=== PATIENT | female | born 1930 | race Caucasian/White ===

== ENCOUNTER → 2016-08-26 | Outpatient (CLI) | payer OTHER ==
[~2016-08-26] MED LIST: COEN1CAP17 PO; NRV/5 PO; OMEG10007 PO; PLV75 PO; POTA1080 PO; PSYL55.43 PO; REDCAP2 PO; TNR50 PO; TRIA75TA53 PO
--- NOTE | 2016-08-26 08:46 | Discharge Instructions ---
Discharge Instructions Procedure Procedure Date: Aug 26, 2016. Reason for visit: 6 Month F/U Right Mass. Discharge Discharge Date: Aug 26, 2016. Discharge Diagnosis: post right breast ultrasound guided core biopsy Instructions Activity Recommendations: Additional Limitations (see below) Return to School/Work: no limitations Recommended Home Diet: No Limitations Provider Instructions: ACTIVITY RECOMMENDATIONS: * No lifting, pushing, pulling or exercising the affected side for three days. RETURN TO SCHOOL/WORK: * You may return to work/school after the procedure, but do not perform any strenuous activities for 24 to 48 hours. MEDICATIONS: * Tylenol (two 325 mg) every four to six hours if needed for mild pain (if not allergic to Tylenol). DIET: * Resume previous diet. SPECIAL CARE INSTRUCTIONS: * Keep biopsy site dry for 24 hours. May shower after 24 hours, but do not soak (bathe) incision. * May remove Tegaderm (plastic patch) tomorrow AFTER showering. * Leave the steri-strips on for one week. Allow the steri-strips to fall off by themselves. If not off after one week, you may remove them. You may place a Bandaid crosswise over the strips, if desired. * Apply ice 10 minutes on and 10 minutes off as needed. * Wear a bra at bedtime to sleep more comfortably for 2-3 days. * Your referring physician should have the results after approximately 5 to 7 business days. * Call for unusual bleeding, fever, drainage, etc or if you have any questions call [phone] during normal business hours or after hours call Dr Lozada, . FOLLOW UP VISIT: Follow-up with Referring Physician as scheduled. Allergies Coded Allergies: NSAIDs (Verified Allergy, Unknown, UNKNOWN, 08/02/15) Rosuvastatin (Verified Allergy, Unknown, ITCHING, 08/02/15) Wheat (Verified Allergy, Unknown, puritis, 08/02/15) Tomato (Verified Adverse Reaction, Mild, HEADACHE, SWOLLEN TONGUE, ) Lisinopril (Verified Adverse Reaction, Unknown, SHORTNESS OF BREATH, ) angioedema [place] Recommendations: Call your doctor if: * Temperature above 101 degrees * Pain not relieved by pain medicine ordered * There is increased drainage or redness from any incision * You have any unanswered questions or concerns. Your Doctors Instructions noted above were prepared by provider Mary Lozada. Patient Signature Section: Patient Instructions Signature Page Patricia Kapadia Patient (or Guardian) Signature/Date: I have read and understand the instructions given to me by my caregivers. Caregiver/RN/Doctor Signature/Date: The above-named patient and/or guardian has received patient instructions on this date. + Original Patient Signature Page (only) stays with chart. Please make copy for patient.
--- NOTE | 2016-08-26 13:07 | MAMMOGRAPHY REPORT ---
ULTRASOUND GUIDED BIOPSY RIGHT BREAST: 08/26/2016 CLINICAL HISTORY: Indeterminate cystic appearing mass in the 6:00 retroareolar right breast. Patidavid cohen presents for ultrasound-guided core biopsy. COMPARISON: Comparison is made to exams dated: 08/26/2016 ultrasound, 08/26/2016 mammogram, 01/28/2016 m ammogram, 01/31/2016 mammogram, 01/31/2016 ultrasound, and 02/20/2016 ultrasound - [facility]. PATIENT CONSENT: The procedure, risks and benefits were discussed with the patient and informed writ ten consent was obtained. Specific risks to this procedure include: bleeding, infection, puncture of adjacent structure, nontarget biopsy, sampling error and medication reaction. PROCEDURE DESCRIPTION: A time out was performed and the right breast was agreed as the site of biops y. The skin was prepped and draped in the usual sterile fashion. The cystic appearing mass in the 6: 00 retroareolar right breast was chosen as the target for biopsy. Subcutaneous and intraparenchymal 1% buffered lidocaine without epinephrine was administered as local anesthesia. A skin incision was made. Through the incision, 2 samples were taken with a 12 gauge Celero biopsy device. A metallic m arker was placed at the biopsy site. Hemostasis was achieved after manual compression. The patient t olerated the procedure well and there was no immediate complication. The samples were sent to the p athology department in an appropriately labeled container. Postprocedure right CC tomosynthesis images were obtained. There is a new ribbon-shaped metallic bi opsy marker and a small, 1.5 x 2.5 cm hematoma at the site of the biopsy. Pending benign pathology results, would recommend return to annual screening mammography schedule. Bilateral mammography is due in January 2017. IMPRESSION: ULTRASOUND GUIDED BIOPSY Status post ultrasound-guided core needle biopsy of an indeterminate cystic-appearing mass in the 6: 00 retroareolar right breast, with biopsy marker placed at site. The patient will receive notification of the biopsy results from her referring physician. Mary Lozada M.D. ay/:08/26/2016 09:22:17 Fruit And Vegetable Classer: Leyla Pierre, [facility]
--- NOTE | 2016-08-26 16:04 | MAMMOGRAPHY REPORT ---
UNILATERAL RIGHT DIGITAL DIAGNOSTIC MAMMOGRAM TOMOSYNTHESIS WITH CAD AND TARGETED RIGHT ULTRASOUND: 08/26/2016 CLINICAL HISTORY: 86-year-old woman presents for a short follow-up after a canceled ultrasound-guide d core biopsy in the right breast. TECHNIQUE: Right CC and MLO 2-D digital and tomosynthesis images and a repeat right CC to the digita l image were obtained. Current study was also evaluated with a Computer Aided Detection (CAD) kwame kumari. COMPARISON: Comparison is made to exams dated: 02/20/2016 ultrasound, 01/31/2016 ultrasound, 01/31/2016 mammogram, 01/28/2016 mammogram, 01/24/2015 mammogram, and 01/23/2014 mammogram - [facility]. BREAST COMPOSITION: There are scattered areas of fibroglandular density in the right breast. FINDINGS: The 4 mm nodular asymmetry in the anterior subareolar right breast, best seen on the CC v iew but thought to project in the 6:00 anterior breast is less conspicuous on all of the current luis ges. There is no evidence of a new suspicious mass, architectural distortion or new cluster of susp icious microcalcifications. There are mild vascular calcifications and scattered benign-appearing r ound microcalcifications throughout the right breast. Targeted ultrasound was performed in the 6:00 and retroareolar aspect of the right breast. Today, t here is a small hypoechoic solid versus cystic mass seen in the 6:00 retroareolar breast, similar to that identified on 01/31/2016. Current measurements are 2.3 x 1.9 x 1.3 mm. Given revisualization of this lesion it is indeterminate and further evaluation with ultrasound-guided core biopsy is rec ommended. This was performed during the same appointment and please refer to a separate report for full detail. IMPRESSION: ACR BI-RADS CATEGORY 4A: LOW SUSPICION FOR MALIGNANCY, TARGETED ULTRASOUND ACR BI-RADS CATEGORY 4A: LOW SUSPICION FOR MALIGNANCY 1. The 4 mm focal asymmetry in the anterior 6:00 retroareolar right breast is less conspicuous on t he prior mammograms. However, there is revisualization of a 2 mm rounded hypoechoic mass on ultraso und that is therefore indeterminate. Definitive characterization with ultrasound guided core needle biopsy is recommended. 2. The biopsy was performed during the same appointment and please refer to a separate report for f ull detail. 3. No other significant interval changes identified in the right breast. Pending benign pathology results, the patient can return to annual screening mammography schedule. These results and recommendations were discussed with the patient and her daughter at the time of th e exam. Approximately 10% of breast cancers are not detected with mammography. A negative mammographic repor t should not delay biopsy if a clinically suggestive mass is present. Mary Lozada M.D. ay/:08/26/2016 15:00:34 Decision Support Analyst: Leyla Pierre, [facility] letter sent: Abnormal 4/5 BI-RADS Code: ACR BI-RADS Category 4A: Low Suspicion For Malignancy Ultrasound BI-RADS: ACR BI-RADS Category 4A: Low Suspicion For Malignancy
== END | disposition home or self-care (01) ==
LOC: C.MAMM 07:52
PROVIDERS: ATTEND Family Medicine
DX: N60.11 Diffuse cystic mastopathy of right breast (principal)

== ENCOUNTER → 2016-10-23 | Outpatient (CLI) | payer OTHER ==
[2016-10-23 12:19] LABS: HEMATOCRIT 37.8 % (37-47); MEAN CELL VOLUME 91.5 fL (80-100); MEAN CORPUSCULAR HGB CONC 33.9 g/dl (32-36); MEAN PLATELET VOLUME 8.8 fL (7.4-10.4); PLATELET COUNT 191 K/uL (130-400); RED BLOOD COUNT 4.13 M/uL (4.2-5.4); WHITE BLOOD COUNT 10.25 K/uL (4.8-10.8)
[2016-10-23 13:08] LABS: ALB/GLOB RATIO 0.6 (0.9-2); ALKALINE PHOSPHATASE 60 U/L (45-117); ALT/SGPT 22 U/L (12-78); AST/SGOT 22 U/L (15-37); BLOOD UREA NITROGEN 17 mg/dl (7-18); BUN/CREATININE RATIO 15.3 (10-20); CALCIUM 9.5 mg/dl (8.5-10.1); CARBON DIOXIDE 31 mmol/L (21-32); CHLORIDE 98 mmol/L (98-107); GLUCOSE 91 mg/dl (70-99); MAGNESIUM 2.1 mg/dl (1.8-2.4); POTASSIUM 3.7 mmol/L (3.5-5.1); SODIUM 136 mmol/L (136-145); URIC ACID 7.1 mg/dl (2.6-7.2)
--- NOTE | 2016-10-28 12:09 | CODING QUERY MEDICAL NECESSITY ---
SUPPORTING DIAGNOSIS NEEDED Dr. Cuello, A supporting diagnosis is required for the test/procedure performed on this patient in order for us to be reimbursed by the patient's insurance. Please provide a supporting diagnosis for the following test/procedure listed below next to the test name along with your signature. *If there is no additional diagnosis for this patient that would support the following test/procedure please document that below next to the test/procedure. Test(s)/Procedure(s) that require a supporting diagnosis: * ([id number]) VITAMIN D ASSAY DIAGNOSIS: DATE OF SERVICE: 10/23/16 Provider Signature: Date: Thank you Jeffery Ghotra [facility] Information Management Once completed, please kindly fax back to [phone] For questions please call [phone]
== END | disposition home or self-care (01) ==
LOC: C.LAB 11:29
PROVIDERS: ATTEND Internal Medicine Nephrology
DX: I12.9 Hypertensive chronic kidney disease with stage 1 through stage 4 chronic kidney disease, or unspecified chronic kidney disease (principal); N20.0 Calculus of kidney; N18.9 Chronic kidney disease, unspecified; R80.9 Proteinuria, unspecified; E55.9 Vitamin D deficiency, unspecified

== ENCOUNTER → 2017-02-04 | Outpatient (CLI) | payer OTHER ==
--- NOTE | 2017-02-05 12:10 | MAMMOGRAPHY REPORT ---
BILATERAL DIGITAL SCREENING MAMMOGRAM TOMOSYNTHESIS WITH CAD: 02/04/2017 CLINICAL HISTORY: Routine screening. Patient has no complaints. TECHNIQUE: Breast tomosynthesis in addition to standard 2D mammography was performed. Current study was also evaluated with a Computer Aided Detection (CAD) system. COMPARISON: Comparison is made to exams dated: 08/26/2016 mammogram, 01/31/2016 mammogram, 01/28/2016 ma mmogram, 01/24/2015 mammogram, 01/23/2014 mammogram, and 01/21/2013 mammogram - [facility] BREAST COMPOSITION: There are scattered areas of fibroglandular density in both breasts. FINDINGS: There are moderate vascular calcifications bilaterally. Diffuse bilateral punctate benign- appearing micro-calcifications. A stable ribbon shaped metallic biopsy marker in the anterior right breast. No suspicious mass, architectural distortion or cluster of microcalcifications is seen. IMPRESSION: ACR BI-RADS CATEGORY 1: NEGATIVE There is no mammographic evidence of malignancy. A 1 year screening mammogram is recommended. The pa tient will receive written notification of the results. Approximately 10% of breast cancers are not detected with mammography. A negative mammographic report should not delay biopsy if a clinically suggestive mass is present. Mary Lozada M.D. ay/:02/04/2017 16:06:48 Fluorescent Solution Mixer: Oanh DAMON(Yadi)(Manuel)(BD), [facility] letter sent: Normal 1/2 BI-RADS Code: ACR BI-RADS Category 1: Negative
== END | disposition home or self-care (01) ==
LOC: C.MAMM 09:30
PROVIDERS: ATTEND Family Medicine
DX: Z12.31 Encounter for screening mammogram for malignant neoplasm of breast (principal)

== ENCOUNTER → 2017-04-14 | Outpatient (CLI) | payer OTHER ==
[2017-04-14 18:06] LABS: HEMATOCRIT 40.9 % (37-47); MEAN CELL VOLUME 95.8 fL (80-100); MEAN CORPUSCULAR HEMOGLOBIN 32.1 pg (25-34); MEAN CORPUSCULAR HGB CONC 33.5 g/dl (32-36); MEAN PLATELET VOLUME 8.4 fL (7.4-10.4); PLATELET COUNT 212 K/uL (130-400); RED BLOOD COUNT 4.27 M/uL (4.2-5.4); WHITE BLOOD COUNT 6.82 K/uL (4.8-10.8)
[2017-04-14 18:32] LABS: ALT/SGPT 24 U/L (12-78); AST/SGOT 23 U/L (15-37); BLOOD UREA NITROGEN 14 mg/dl (7-18); BUN/CREATININE RATIO 11.3 (10-20); CALCIUM 9.4 mg/dl (8.5-10.1); CARBON DIOXIDE 30 mmol/L (21-32); CHLORIDE 93 mmol/L (98-107); GLUCOSE 88 mg/dl (70-99); MAGNESIUM 1.7 mg/dl (1.8-2.4); POTASSIUM 3.3 mmol/L (3.5-5.1); SODIUM 131 mmol/L (136-145)
[2017-04-14 18:35] LABS: ALB/GLOB RATIO 0.7 (0.9-2); ALKALINE PHOSPHATASE 56 U/L (45-117)
--- NOTE | 2017-04-21 07:34 | CODING QUERY MEDICAL NECESSITY ---
SUPPORTING DIAGNOSIS NEEDED Dr. Cuello, A supporting diagnosis is required for the test/procedure performed on this patient in order for us to be reimbursed by the patient's insurance. Please provide a supporting diagnosis for the following test/procedure listed below next to the test name along with your signature. *If there is no additional diagnosis for this patient that would support the following test/procedure please document that below next to the test/procedure. Test(s)/Procedure(s) that require a supporting diagnosis: * ([id number]) VITAMIN D ASSAY DIAGNOSIS: DATE OF SERVICE: 04/14/17 Provider Signature: Date: Thank you Jeffery Ghotra [facility] Information Management Once completed, please kindly fax back to [phone] For questions please call [phone]
== END | disposition home or self-care (01) ==
LOC: C.LAB 17:26
PROVIDERS: ATTEND Internal Medicine Nephrology
DX: I12.9 Hypertensive chronic kidney disease with stage 1 through stage 4 chronic kidney disease, or unspecified chronic kidney disease (principal); N20.0 Calculus of kidney; N18.9 Chronic kidney disease, unspecified; R80.9 Proteinuria, unspecified

== ENCOUNTER 2017-10-07 23:56 | Inpatient (IN) | payer OTHER ==
[~2017-10-07] VITALS: Ht 157.5 cm; Wt 71.7 kg
[2017-10-08] VITALS (7 sets, daily range): BP systolic 123–164; BP diastolic 69–73; PULSE 70–82; TEMP 36.6–37.1; O2SAT 92–95; Ht 157.5 cm; Wt 71.7 kg
[2017-10-08] MEDS ORDERED: ONDANSETRON INJ 2 MG/ML 2 ML VIAL IV STA (00:25)
--- NOTE | 2017-10-08 00:33 | EMERGENCY ROOM VISIT NOTE ---
History Report prepared by Valorie: Arpit Xiao Under the Supervision of: Dr. Yajaira Greene D.O. First contact with patient: 00:07 Chief Complaint: VOMITING Stated Complaint: VOMITING Nursing Triage Summary: Pt complains of vomiting since yesterday. Denies any abdominal pain or diarrhea. pt has Urostomy and Colostomy. denies other symptoms. History of Present Illness The patient is an 87 year old female who presents to the Emergency Room with complaints of intermittent vomiting throughout the day. The patient states she was fine over the weekend. She reports she could not eat or drink anything today without vomiting and becoming nauseous. The patient notes she had less stool and urine output from her ostomy bags. She states she currently does not feel sick to her stomach. The patient reports she also has intermittent headaches. She notes she has a history of uterine cancer and has two ostomy bags. The patient states she lives alone. She denies abdominal pain, diarrhea, a history of these symptoms before, chest pain, shortness of breath, dizziness, and lightheadedness. Source of History: patient Onset: intermittent Quality: other (vomiting) Timing: intermittent Modifying Factors (Worsening): eating, drinking Associated Symptoms: + nausea, No chest pain, No SOB, No abdominal pain, No diarrhea Note: Associated symptoms: less ostomy output of stool and urine Denies: dizziness and lightheadedness Review of Systems See HPI for pertinent positives & negatives. A total of 10 systems reviewed and were otherwise negative. Past Medical & Surgical Medical Problems: (1) History of uterine cancer (2) Hyponatremia (3) Urostomy (4) Vomiting Surgical Problems: (1) Colostomy in place (2) History of cholecystectomy Family History Cancer Diabetes mellitus Social History Smoking Status: Never Smoker Alcohol Use: none Drug Use: none Marital Status: Housing Status: lives alone Occupation Status: retired Current/Historical Medications Scheduled Amlodipine Besylate (Amlodipine Besylate), 10 MG PO QAM Amlodipine Besylate (Amlodipine Besylate), 5 MG PO QPM Atenolol (Atenolol), 50 MG PO BID Clopidogrel Bisulfate (Clopidogrel), 75 MG PO DAILY Coenzyme Q10 (Ubidecarenone) (Co Q 10), 100 MG PO DAILY Fish Oil ([place]-3), 1 CAP PO BID Potassium Citrate (Potassium Citrate), 10 MEQ PO TID Psyllium (Metamucil Powder), 1-2 TSP PO DAILY Red Yeast Rice Extract (Red Yeast Rice), 600 MG PO BID Triamterene/Hctz (Maxzide 75MG/50MG), 0.5 TAB PO DAILY Allergies Coded Allergies: NSAIDs (Verified Allergy, Unknown, UNKNOWN, 08/02/15) Rosuvastatin (Verified Allergy, Unknown, ITCHING, 08/02/15) Wheat (Verified Allergy, Unknown, puritis, 08/02/15) Tomato (Verified Adverse Reaction, Mild, HEADACHE, SWOLLEN TONGUE, ) Lisinopril (Verified Adverse Reaction, Unknown, SHORTNESS OF BREATH, ) angioedema Physical Exam Vital Signs Date Time Temp Pulse Resp B/P (MAP) Pulse Ox O2 Delivery O2 Flow Rate FiO2 10/08/17 01:23 96 Nasal Cannula 2.0 10/08/17 01:07 71 19 138/67 88 Room Air 10/08/17 01:06 73 10/08/17 01:06 92 Room Air 10/07/17 23:58 36.6 88 20 169/63 96 Room Air Physical Exam HEENT: Head - normocephalic and atraumatic Pupils are equal, round, and reactive to light. Extraocular eye muscles are intact, and sclera are anicteric. Nose - moist nasal mucosa without discharge. Mouth - dry buccal mucosa. Oropharynx is nonerythematous and there is no tonsillar exudate or edema noted. Neck: Supple; no JVD, nuchal rigidity, cervical lymphadenopathy. Heart: Regular rate and rhythm. There is a normal S1 and S2 with no murmurs, clicks, or gallops appreciated. Lungs: Clear to auscultation bilaterally with no wheezes, rales, or rhonchi. Abdomen: Soft, completely nontender, nondistended, with good bowel sounds. There are no palpable pulsatile masses or hepatosplenomegaly. There is no guarding, rigidity, or rebound noted. Nephrostomy and colostomy in place. Extremities: No evidence of cyanosis, clubbing, or edema. There are easily palpable peripheral pulses. Skin: warm and dry with good turgor and no rashes. Medical Decision & Procedures Laboratory Results 10/08/17 00:27 Red Blood Count 4.30, Mean Corpuscular Volume 86.0, Mean Corpuscular Hemoglobin 31.6, Mean Corpuscular Hemoglobin Concent 36.8, Mean Platelet Volume 8.5, Neutrophils (%) (Auto) 81.5, Lymphocytes (%) (Auto) 10.5, Monocytes (%) (Auto) 7.3, Eosinophils (%) (Auto) 0.4, Basophils (%) (Auto) 0.1, Neutrophils # (Auto) 8.57, Lymphocytes # (Auto) 1.10, Monocytes # (Auto) 0.77, Eosinophils # (Auto) 0.04, Basophils # (Auto) 0.01 Test 10/08/17 00:27 10/08/17 00:41 White Blood Count 10.51 K/uL (4.8-10.8) Red Blood Count 4.30 M/uL (4.2-5.4) Hemoglobin 13.6 g/dL (12.0-16.0) Hematocrit 37.0 % (37-47) Mean Corpuscular Volume 86.0 fL (80-100) Mean Corpuscular Hemoglobin 31.6 pg (25-34) Mean Corpuscular Hemoglobin Concent 36.8 g/dl (32-36) Platelet Count 148 K/uL (130-400) Mean Platelet Volume 8.5 fL (7.4-10.4) Neutrophils (%) (Auto) 81.5 % Lymphocytes (%) (Auto) 10.5 % Monocytes (%) (Auto) 7.3 % Eosinophils (%) (Auto) 0.4 % Basophils (%) (Auto) 0.1 % Neutrophils # (Auto) 8.57 K/uL (1.4-6.5) Lymphocytes # (Auto) 1.10 K/uL (1.2-3.4) Monocytes # (Auto) 0.77 K/uL (0.11-0.59) Eosinophils # (Auto) 0.04 K/uL (0-0.5) Basophils # (Auto) 0.01 K/uL (0-0.2) RDW Standard Deviation 38.7 fL (36.4-46.3) RDW Coefficient of Variation 12.3 % (11.5-14.5) Immature Granulocyte % (Auto) 0.2 % Immature Granulocyte # (Auto) 0.02 K/uL (0.00-0.02) Osmolality 241 mOsm/kg (280-300) Troponin I 0.027 ng/ml (0-0.045) Urine Color YELLOW Urine Appearance TURBID (CLEAR) Urine pH 8.5 (4.5-7.5) Urine Specific [place] 1.011 (1.000-1.030) Urine Protein 2+ (NEG) Urine Glucose (UA) NEG (NEG) Urine Ketones NEG (NEG) Urine Occult Blood 3+ (NEG) Urine Nitrite NEG (NEG) Urine Bilirubin NEG (NEG) Urine Urobilinogen NEG (NEG) Urine Leukocyte Esterase LARGE (NEG) Urine WBC (Auto) >30 /hpf (0-5) Urine RBC (Auto) 10-30 /hpf (0-4) Urine Hyaline Casts (Auto) 0 /lpf (0-5) Urine Epithelial Cells (Auto) >30 /lpf (0-5) Urine Bacteria (Auto) 4+ (NEG) Urine Pathogenic Casts /lpf (0) Urine Yeast (Auto) (NONE PRSENT) Laboratory results per my review. Medications Administered Medications (Trade) Dose Ordered Sig/Vianey Route Start Time Stop Time Status Last Admin Dose Admin Ondansetron HCl (Zofran Inj) 4 mg NOW STAT IV 10/08/17 00:25 10/08/17 00:26 DC 10/08/17 00:36 4 MG Sodium Chloride 1,000 ml @ 250 mls/hr Q4H STAT IV 10/08/17 01:37 10/08/17 03:22 DC 10/08/17 01:56 250 MLS/HR Potassium Chloride (Kcl 10 Meq / Wtr) 10 meq NOW STAT IV 10/08/17 01:37 10/08/17 01:38 DC 10/08/17 01:56 10 MEQ Procedure 0025: Ordered Ondansetron HCl 4mg IV 0137: Ordered Potassium Chloride 10 meq IV, Sodium Chloride 1000 ml @ 250 mls/ hr IV. ECG Per My Interpretation Indication: vomiting Rate (beats per minute): 78 Rhythm: normal sinus Findings: ST depression (Lateral, AVL, and lead I) Comparison ECG Date: 01/21/2016 Change: ST Depression is new. ED Course 0015: The patient was evaluated in room A11B. A complete history and physical examination were performed. Nursing notes and previous electronic medical records were reviewed. IV lock was established and labs were drawn as above. A 12-lead EKG was obtained as described above. 0025: Ordered Ondansetron HCl 4mg IV 0128: Upon reevaluation, I discussed findings and results with her and her family. The patient states her nausea is better. She will receive saline and potassium. She verbalized agreement of the treatment plan. The patient will be evaluated for further management and care. 0137: Ordered Potassium Chloride 10 meq IV, Sodium Chloride 1000 ml @ 250 mls/ hr IV. 0148: I spoke with Dr. Berumen of the [facility]. The patient will be evaluated for further management and care. Medical Decision The patient is an 87 year old female who presents to the ED with intermittent vomiting with nausea. Differential diagnosis includes cardiac ischemia, gastritis, enteritis, SBO. Lab results show: no leukocytosis, stable H&H, sodium of 112, potassium of 2.5, normal renal function, glucose of 130, troponin of 0.027, UA looks infected with 3+ blood, 4+ bacteria, >30 WBC, large leukocyte esterase. This is an 87-year-old female patient presents to the emergency department with a fairly sudden onset of nausea and vomiting. She has no other significant associated symptoms such as diarrhea, fever or abdominal pain. Upon presentation, I was concerned for cardiac ischemia given her age and symptoms of nausea and vomiting. Patient does have some EKG changes. Cardiac enzymes will need to be trended. However, the patient does have significant hypokalemia and hyponatremia. There is electrolyte abnormalities will need to be corrected. This certainly could account for the patient's extreme weakness. I have discussed the case with [facility] and they will evaluate for further management. Medication Reconcilliation Current Medication List: was personally reviewed by me Blood Pressure Screening Patient's blood pressure: Normal blood pressure Blood pressure disposition: Did not require urgent referral Consults Time Called: 013 Consulting Physician: Dr. Berumen of the [facility] Returned Call: [address] Berumen of the [facility]. The patient will be evaluated for further management and care. Impression Primary Impression: NSTEMI (non-ST elevated myocardial infarction) Additional Impressions: Hypokalemia Hyponatremia Scribe Attestation The scribe's documentation has been prepared under my direction and personally reviewed by me in its entirety. I confirm that the note above accurately reflects all work, treatment, procedures, and medical decision making performed by me. Departure Information Dispostion Being Evaluated By Hospitalist Referrals Lucio Carlos M.D. (PCP) Patient Instructions My [facility] Problem Qualifiers
[2017-10-08 00:36] LABS: BASO % 0.1 %; BASO ABS # 0.01 K/uL (0-0.2); EOS % 0.4 %; EOS ABS # 0.04 K/uL (0-0.5); HEMOGLOBIN 13.6 g/dL (12.0-16.0); IG# 0.02 K/uL (0.00-0.02); LYMPH % 10.5 %; MEAN CORPUSCULAR HEMOGLOBIN 31.6 pg (25-34); MEAN CORPUSCULAR HGB CONC 36.8 g/dl (32-36); MEAN PLATELET VOLUME 8.5 fL (7.4-10.4); MONO % 7.3 %; MONO ABS # 0.77 K/uL (0.11-0.59); NEUT % 81.5 %; NEUT ABS # 8.57 K/uL (1.4-6.5); PLATELET COUNT 148 K/uL (130-400); RED CELL DISTRIBUTION WIDTH CV 12.3 % (11.5-14.5); RED CELL DISTRIBUTION WIDTH SD 38.7 fL (36.4-46.3); WHITE BLOOD COUNT 10.51 K/uL (4.8-10.8)
[2017-10-08 01:00] LABS: ALBUMIN 3.2 gm/dl (3.4-5.0); CALCIUM 7.8 mg/dl (8.5-10.1); CREATININE 0.87 mg/dl (0.60-1.20); POTASSIUM 2.5 mmol/L (3.5-5.1)
[2017-10-08] MEDS ORDERED: POTASSIUM CHLORIDE 10 MEQ / 100ML WTR IV STA (01:37)
[2017-10-08] MEDS ORDERED: SODIUM CHLORIDE 0.9% 1000ML 1,000 ML IV STA (01:37)
[2017-10-08] MEDS ORDERED: URC10 PO (02:21)
[2017-10-08] MEDS ORDERED: POTASSIUM CHLORIDE 20 MEQ TABCR PO STA (02:30)
[2017-10-08] MEDS ORDERED: ONDANSETRON INJ 2 MG/ML 2 ML VIAL IV PRN (02:30)
[2017-10-08] MEDS: MAGNESIUM SULFATE 1GM / D5W 1 GM in PREMIXED IN D5W 100 ML IV SCH ×4 (04:37→07:15)
--- NOTE | 2017-10-08 06:58 | History and Physical ---
History & Physical Date & Time of Service: Oct 08, 2017 at 06:51 Chief Complaint: Hyponatremia, Vomiting Primary Care Physician: Lucio Carlos M.D. History of Present Illness Source: patient, family This is an 87 year old Female with history of ostomy bags x 2 who has been having vomiting x 1 day. Patient denies acute abdominal pain associated with the vomiting. She cannot determine whether there has been more ostomy outputs recently. Patient's labs grossly abnormal for: -hyponatremia admission serum sodium 112 -hypomagnesemia admission serum magnesium 1.1 -hypokalemia admission serum potassium 2.5 Patient denies fever or dysuria or lightheadedness or other symptoms besides the vomiting Past Medical/Surgical History Medical Problems: (1) Bowel obstruction (2) Dehydration (3) Electrolyte abnormality (4) Epistaxis (5) History of uterine cancer (6) Hypertension (7) Hyponatremia (8) Mild headache (9) Parastomal hernia (10) Paresthesia (11) Renal insufficiency (12) Urostomy (13) Vomiting Surgical Problems: (1) Colostomy in place (2) History of cholecystectomy Family History Cancer Diabetes mellitus Social History Smoking Status: Never Smoker Drug Use: none Marital Status: Housing status: lives with family Occupational Status: retired Immunizations History of Influenza Vaccine: Yes History of Tetanus Vaccine?: Yes History of Pneumococcal: Yes History of Hepatitis B Vaccine: No Allergies Coded Allergies: NSAIDs (Verified Allergy, Unknown, UNKNOWN, 08/02/15) Rosuvastatin (Verified Allergy, Unknown, ITCHING, 08/02/15) Wheat (Verified Allergy, Unknown, puritis, 08/02/15) Tomato (Verified Adverse Reaction, Mild, HEADACHE, SWOLLEN TONGUE, ) Lisinopril (Verified Adverse Reaction, Unknown, SHORTNESS OF BREATH, ) angioedema Home Medications Scheduled Amlodipine Besylate (Amlodipine Besylate), 10 MG PO QAM Amlodipine Besylate (Amlodipine Besylate), 5 MG PO QPM Atenolol (Atenolol), 50 MG PO BID Clopidogrel Bisulfate (Clopidogrel), 75 MG PO DAILY Coenzyme Q10 (Ubidecarenone) (Co Q 10), 100 MG PO DAILY Fish Oil ([place]-3), 1 CAP PO BID Potassium Citrate (Potassium Citrate), 10 MEQ PO TID Psyllium (Metamucil Powder), 1-2 TSP PO DAILY Red Yeast Rice Extract (Red Yeast Rice), 600 MG PO BID Triamterene/Hctz (Maxzide 75MG/50MG), 0.5 TAB PO DAILY Review of Systems Constitutional: No fever Eyes: No worsening of vision, No eye pain ENT: No hearing loss, No sore throat, No trouble swallowing Respiratory: No cough, No shortness of breath Cardiovascular: No chest pain, No palpitations Abdomen: + nausea, + vomiting, No pain Musculoskeletal: No joint pain Genitourinary - Female: No dysuria Neurologic: No numbness/tingling Endocrine: No fatigue Hematologic / Lymphatic: No abnormal bleeding/bruising Integumentary: No rash, No itch Physical Exam Vital Signs Date Time Temp Pulse Resp B/P (MAP) Pulse Ox O2 Delivery O2 Flow Rate FiO2 10/08/17 04:00 Nasal Cannula 2.0 10/08/17 03:32 36.6 82 20 164/72 10/08/17 03:03 93 17 155/90 97 10/08/17 02:56 93 17 153/82 97 Nasal Cannula 2.0 10/08/17 02:30 Nasal Cannula 2.0 10/08/17 02:23 87 17 143/74 97 Nasal Cannula 2.0 10/08/17 01:23 96 Nasal Cannula 2.0 10/08/17 01:07 71 19 138/67 88 Room Air 10/08/17 01:06 73 10/08/17 01:06 92 Room Air 10/07/17 23:58 36.6 88 20 169/63 96 Room Air General Appearance: no apparent distress Head: normocephalic, atraumatic Eyes: normal inspection, EOMI, sclerae normal ENT: normal ENT inspection, hearing grossly normal, pharynx normal Neck: supple, no JVD, trachea midline Respiratory/Chest: chest non-tender, lungs clear, normal breath sounds, no respiratory distress, no accessory muscle use Cardiovascular: regular rate, rhythm, no edema, no JVD, normal peripheral pulses, + systolic murmur Abdomen/GI: normal bowel sounds, non tender, soft, + pertinent finding ( presence of ostomy bags on right and left abdomen) Back: normal inspection, no CVA tenderness, no muscle spasm Extremities/Musculoskelatal: normal inspection, no calf tenderness, no pedal edema, non-tender Neurologic/Psych: no motor/sensory deficits, alert, normal mood/affect Skin: normal color, warm/dry, no rash Diagnostics Laboratory Results Results Past 24 Hours Test 10/08/17 00:27 10/08/17 00:41 10/08/17 06:28 Range/Units White Blood Count 10.51 4.8-10.8 K/uL Red Blood Count 4.30 4.2-5.4 M/uL Hemoglobin 13.6 12.0-16.0 g/dL Hematocrit 37.0 37-47 % Mean Corpuscular Volume 86.0 80-100 fL Mean Corpuscular Hemoglobin 31.6 25-34 pg Mean Corpuscular Hemoglobin Concent 36.8 32-36 g/dl Platelet Count 148 130-400 K/uL Mean Platelet Volume 8.5 7.4-10.4 fL Neutrophils (%) (Auto) 81.5 % Lymphocytes (%) (Auto) 10.5 % Monocytes (%) (Auto) 7.3 % Eosinophils (%) (Auto) 0.4 % Basophils (%) (Auto) 0.1 % Neutrophils # (Auto) 8.57 1.4-6.5 K/uL Lymphocytes # (Auto) 1.10 1.2-3.4 K/uL Monocytes # (Auto) 0.77 0.11-0.59 K/uL Eosinophils # (Auto) 0.04 0-0.5 K/uL Basophils # (Auto) 0.01 0-0.2 K/uL RDW Standard Deviation 38.7 36.4-46.3 fL RDW Coefficient of Variation 12.3 11.5-14.5 % Immature Granulocyte % (Auto) 0.2 % Immature Granulocyte # (Auto) 0.02 0.00-0.02 K/uL Sodium Level 112 136-145 mmol/L Potassium Level 2.5 3.5-5.1 mmol/L Chloride Level 75 98-107 mmol/L Carbon Dioxide Level 26 21-32 mmol/L Anion Gap 12.0 3-11 mmol/L Blood Urea Nitrogen 14 7-18 mg/dl Creatinine 0.87 0.60-1.20 mg/dl Est Creatinine Clear Calc Drug Dose 40.4 ml/min Estimated GFR () 68.9 Estimated GFR (Non- 59.5 BUN/Creatinine Ratio 15.9 10-20 Random Glucose 130 70-99 mg/dl Osmolality 241 280-300 mOsm/kg Calcium Level 7.8 8.5-10.1 mg/dl Magnesium Level 1.1 1.8-2.4 mg/dl Total Bilirubin 1.2 0.2-1 mg/dl Aspartate Amino Transf (AST/SGOT) 40 15-37 U/L Alanine Aminotransferase (ALT/SGPT) 44 12-78 U/L Alkaline Phosphatase 75 45-117 U/L Troponin I 0.027 0-0.045 ng/ml Total Protein 8.0 6.4-8.2 gm/dl Albumin 3.2 3.4-5.0 gm/dl Globulin 4.8 2.5-4.0 gm/dl Albumin/Globulin Ratio 0.7 0.9-2 Urine Color YELLOW Urine Appearance TURBID CLEAR Urine pH 8.5 4.5-7.5 Urine Specific [place] 1.011 1.000-1.030 Urine Protein 2+ NEG Urine Glucose (UA) NEG NEG Urine Ketones NEG NEG Urine Occult Blood 3+ NEG Urine Nitrite NEG NEG Urine Bilirubin NEG NEG Urine Urobilinogen NEG NEG Urine Leukocyte Esterase LARGE NEG Urine WBC (Auto) >30 0-5 /hpf Urine RBC (Auto) 10-30 0-4 /hpf Urine Hyaline Casts (Auto) 0 0-5 /lpf Urine Epithelial Cells (Auto) >30 0-5 /lpf Urine Bacteria (Auto) 4+ NEG Urine Pathogenic Casts 0 /lpf Urine Yeast (Auto) NONE PRSENT Microbiology Results 10/08/17 Blood Culture, Received Pending 10/08/17 Blood Culture, Received Pending 10/08/17 Urine Culture, Received Pending Impression Assessment and Plan Vomiting -NPO and advance to clear liquids as tolerated -Antiemetics -follow up blood, urine, stool studies -denies abdominal pain -may need abdominal imaging studies if vomiting does not resolve Ostomy sites on right and left abdomen -denies recent antibiotic use -send C.diff study and stool cultures from ostomy output Electrolyte deficiencies likely from vomiting an ostomy output -hyponatremia admission serum sodium 112 - on IV fluids, monitor serum sodium to not over correct beyond 8 meq per 24 hours -hypomagnesemia admission serum magnesium 1.1 - have ordered 4 grams of IV magnesium to be given -hypokalemia admission serum potassium 2.5 - received 10 meq IV potassium in the ED, received 80 meq oral potassium -will need to repeat labs UA with bacteria and large leukesterase -patient denies dysuria, follow up urine cultures The ER notes incorrectly wrote the patient has NSTEMI -initial troponin negative and patient denies chest pain Blood pressure -continue amlodipine -will need to calrify whether patient is on Lopressor 50 mg BID vs Atenolol 50 mg BID Peripheral Vascular disease -continue plavix DVT ppx Full Code family [phone] Advanced Directives Existing Living Will: No Existing Power of Handle Maker: Yes Resuscitation Status VTE Prophylaxis Will order VTE Prophylaxis: Yes
[2017-10-08 07:30] LABS: ALBUMIN 2.8 gm/dl (3.4-5.0); CALCIUM 7.7 mg/dl (8.5-10.1); CREATININE 0.68 mg/dl (0.60-1.20); POTASSIUM 2.9 mmol/L (3.5-5.1); TOTAL PROTEIN 7.1 gm/dl (6.4-8.2)
[2017-10-08] MEDS ORDERED: SODIUM CHLORIDE 0.9% 1000ML 1,000 ML IV SCH (07:45)
[2017-10-08] MEDS: CLOPIDOGREL BISULFATE 75 MG TAB PO SCH (07:54)
[2017-10-08] MEDS ORDERED: CEFTRIAXONE SOD INJ 1 GM in DEXTROSE 5% ADD-VANTAGE 50ML 50 ML IV SCH (12:00)
--- NOTE | 2017-10-08 12:31 | Progress Note ---
Medicine Progress Note Date & Time of Visit: Oct 08, 2017 at 12:22. Subjective 87 yo F with one day h/o vomiting presents with hyponatremia. She is alert and appropriate x 3 but tells me that she feels somewhat confused. She denies any pain, recent illnesses, fevers, chills and denies any nausea at this time. She is requesting food. She denies any abdominal pain. She lives alone and reportedly manages her medications and takes care of herself. Objective Last 8 Hrs Date Time Temp Pulse Resp B/P (MAP) Pulse Ox O2 Delivery O2 Flow Rate FiO2 10/08/17 08:00 92 Room Air 10/08/17 07:33 37.0 74 18 138/72 (94) 93 Nasal Cannula 1.0 Physical Exam: GEN: WNWD, in no acute distress, alert and appropriate HEENT: NC/AT, normal sclerae, MMM CARDIO: reg rate, S1/2 heard without m/g/r LUNGS: CTA bilaterally, no crackles, rales or wheezes, good diaphragmatic excursion ABD: soft, non-tender, non-distended, no rebound or guarding, +BS, two ostomy sites with foul-smelling stool. EXTREMITY: RP and DP palpable 2+ bilat, no LE swelling or edema, extremities are warm and well-perfused NEURO: CN 2-12 grossly intact MUSC: generalized weakness, cannot sit up in bed on her own. SKIN: warm and dry Laboratory Results: 10/08/17 00:27 Red Blood Count 4.30, Mean Corpuscular Volume 86.0, Mean Corpuscular Hemoglobin 31.6, Mean Corpuscular Hemoglobin Concent 36.8, Mean Platelet Volume 8.5, Neutrophils (%) (Auto) 81.5, Lymphocytes (%) (Auto) 10.5, Monocytes (%) (Auto) 7.3, Eosinophils (%) (Auto) 0.4, Basophils (%) (Auto) 0.1, Neutrophils # (Auto) 8.57, Lymphocytes # (Auto) 1.10, Monocytes # (Auto) 0.77, Eosinophils # (Auto) 0.04, Basophils # (Auto) 0.01 Test 10/08/17 00:27 10/08/17 00:41 10/08/17 06:28 10/08/17 08:30 White Blood Count 10.51 K/uL (4.8-10.8) Red Blood Count 4.30 M/uL (4.2-5.4) Hemoglobin 13.6 g/dL (12.0-16.0) Hematocrit 37.0 % (37-47) Mean Corpuscular Volume 86.0 fL (80-100) Mean Corpuscular Hemoglobin 31.6 pg (25-34) Mean Corpuscular Hemoglobin Concent 36.8 g/dl (32-36) Platelet Count 148 K/uL (130-400) Mean Platelet Volume 8.5 fL (7.4-10.4) Neutrophils (%) (Auto) 81.5 % Lymphocytes (%) (Auto) 10.5 % Monocytes (%) (Auto) 7.3 % Eosinophils (%) (Auto) 0.4 % Basophils (%) (Auto) 0.1 % Neutrophils # (Auto) 8.57 K/uL (1.4-6.5) Lymphocytes # (Auto) 1.10 K/uL (1.2-3.4) Monocytes # (Auto) 0.77 K/uL (0.11-0.59) Eosinophils # (Auto) 0.04 K/uL (0-0.5) Basophils # (Auto) 0.01 K/uL (0-0.2) RDW Standard Deviation 38.7 fL (36.4-46.3) RDW Coefficient of Variation 12.3 % (11.5-14.5) Immature Granulocyte % (Auto) 0.2 % Immature Granulocyte # (Auto) 0.02 K/uL (0.00-0.02) Osmolality 241 mOsm/kg (280-300) Troponin I 0.027 ng/ml (0-0.045) Urine Color YELLOW Urine Appearance TURBID (CLEAR) Urine pH 8.5 (4.5-7.5) Urine Specific [place] 1.011 (1.000-1.030) Urine Protein 2+ (NEG) Urine Glucose (UA) NEG (NEG) Urine Ketones NEG (NEG) Urine Occult Blood 3+ (NEG) Urine Nitrite NEG (NEG) Urine Bilirubin NEG (NEG) Urine Urobilinogen NEG (NEG) Urine Leukocyte Esterase LARGE (NEG) Urine WBC (Auto) >30 /hpf (0-5) Urine RBC (Auto) 10-30 /hpf (0-4) Urine Hyaline Casts (Auto) 0 /lpf (0-5) Urine Epithelial Cells (Auto) >30 /lpf (0-5) Urine Bacteria (Auto) 4+ (NEG) Urine Pathogenic Casts /lpf (0) Urine Yeast (Auto) (NONE PRSENT) Est Creatinine Clear Calc Drug Dose 52.9 ml/min Magnesium Level 2.2 mg/dl (1.8-2.4) Total Bilirubin 1.1 mg/dl (0.2-1) Aspartate Amino Transf (AST/SGOT) 37 U/L (15-37) Alanine Aminotransferase (ALT/SGPT) 38 U/L (12-78) Alkaline Phosphatase 67 U/L (45-117) Total Protein 7.1 gm/dl (6.4-8.2) Albumin 2.8 gm/dl (3.4-5.0) Globulin 4.3 gm/dl (2.5-4.0) Albumin/Globulin Ratio 0.7 (0.9-2) Urine Osmolality 306 mOms/kg (500-800) Test 10/08/17 11:55 Date/Time Source Procedure Growth Status 10/08/17 03:03 Blood Blood Culture Pending Received 10/08/17 08:30 Stool Shiga Toxin Test Pending Received 10/08/17 08:30 Stool Stool Culture Pending Received 10/08/17 00:41 Urine , Clean Catch Urine Culture Pending Received Last 24 Hours Test 10/08/17 00:27 10/08/17 00:41 10/08/17 06:28 10/08/17 08:30 White Blood Count 10.51 K/uL Red Blood Count 4.30 M/uL Hemoglobin 13.6 g/dL Hematocrit 37.0 % Mean Corpuscular Volume 86.0 fL Mean Corpuscular Hemoglobin 31.6 pg Mean Corpuscular Hemoglobin Concent 36.8 g/dl Platelet Count 148 K/uL Mean Platelet Volume 8.5 fL Neutrophils (%) (Auto) 81.5 % Lymphocytes (%) (Auto) 10.5 % Monocytes (%) (Auto) 7.3 % Eosinophils (%) (Auto) 0.4 % Basophils (%) (Auto) 0.1 % Neutrophils # (Auto) 8.57 K/uL Lymphocytes # (Auto) 1.10 K/uL Monocytes # (Auto) 0.77 K/uL Eosinophils # (Auto) 0.04 K/uL Basophils # (Auto) 0.01 K/uL RDW Standard Deviation 38.7 fL RDW Coefficient of Variation 12.3 % Immature Granulocyte % (Auto) 0.2 % Immature Granulocyte # (Auto) 0.02 K/uL Sodium Level 112 mmol/L 114 mmol/L Potassium Level 2.5 mmol/L 2.9 mmol/L Chloride Level 75 mmol/L 77 mmol/L Carbon Dioxide Level 26 mmol/L 27 mmol/L Anion Gap 12.0 mmol/L 10.0 mmol/L Blood Urea Nitrogen 14 mg/dl 11 mg/dl Creatinine 0.87 mg/dl 0.68 mg/dl Est Creatinine Clear Calc Drug Dose 40.4 ml/min 52.9 ml/min Estimated GFR () 68.9 90.5 Estimated GFR (Non- 59.5 78.1 BUN/Creatinine Ratio 15.9 16.1 Random Glucose 130 mg/dl 107 mg/dl Osmolality 241 mOsm/kg Calcium Level 7.8 mg/dl 7.7 mg/dl Magnesium Level 1.1 mg/dl 2.2 mg/dl Total Bilirubin 1.2 mg/dl 1.1 mg/dl Aspartate Amino Transf (AST/SGOT) 40 U/L 37 U/L Alanine Aminotransferase (ALT/SGPT) 44 U/L 38 U/L Alkaline Phosphatase 75 U/L 67 U/L Troponin I 0.027 ng/ml Total Protein 8.0 gm/dl 7.1 gm/dl Albumin 3.2 gm/dl 2.8 gm/dl Globulin 4.8 gm/dl 4.3 gm/dl Albumin/Globulin Ratio 0.7 0.7 Urine Color YELLOW Urine Appearance TURBID Urine pH 8.5 Urine Specific [place] 1.011 Urine Protein 2+ Urine Glucose (UA) NEG Urine Ketones NEG Urine Occult Blood 3+ Urine Nitrite NEG Urine Bilirubin NEG Urine Urobilinogen NEG Urine Leukocyte Esterase LARGE Urine WBC (Auto) >30 /hpf Urine RBC (Auto) 10-30 /hpf Urine Hyaline Casts (Auto) 0 /lpf Urine Epithelial Cells (Auto) >30 /lpf Urine Bacteria (Auto) 4+ Urine Pathogenic Casts /lpf Urine Yeast (Auto) Urine Osmolality 306 mOms/kg Test 10/08/17 11:55 Date/Time Source Procedure Growth Status 10/08/17 03:03 Blood Blood Culture Pending Received 10/08/17 02:55 Blood Blood Culture Pending Received 10/08/17 08:30 Stool Shiga Toxin Test Pending Received 10/08/17 08:30 Stool Stool Culture Pending Received 10/08/17 08:30 Stool C.difficile Toxin B Gene (PCR) - Final No C. difficile toxin B gene detected Complete 10/08/17 00:41 Urine , Clean Catch Urine Culture Pending Received Assessment & Plan 87 yo F with one day h/o vomiting presents with hyponatremia. She is alert and appropriate x 3 but tells me that she feels somewhat confused. She denies any pain, recent illnesses, fevers, chills and denies any nausea at this time. She is requesting food. She denies any abdominal pain. She lives alone and reportedly manages her medications and takes care of herself. 1. Hypovolemic Hypotonic Hyponatremia-likely related to recent vomiting, however, patient lives alone and I am wondering if her PO intake is not where it should be with her other electrolyte abnormalities. Additionally, her ostomy output is foul smelling, so infection here is possible, and she appears to have a UTI. 2. [id number] and has resolved. 3. UTI-Rocephin started empirically, urine culture pending. 4. s/p abdominal surgery with bilateral ostomy sites. C-diff negative. Stool studies are pending. 5. Hypomagnesemia-replaced 6. Hypokalemia-replacing. 7. HTN-cont amlopdipine, holding atenolol and maxzide in setting of volume depletion. 8. PVD-cont Plavix DVT ppx-Lovenox Full Code Dispo-telemetry Brielle Moffett DO [facility] Hospitalist Consultants: [facility]phro-Kerim Oncu Current Inpatient Medications: Current Inpatient Medications Medications (Trade) Dose Ordered Sig/Vianey Route Start Time Stop Time Status Last Admin Dose Admin Ondansetron HCl (Zofran Inj) 4 mg Q4H PRN IV 10/08/17 02:30 11/07/17 02:29 Amlodipine Besylate (Norvasc Tab) 5 mg QPM PO 10/08/17 21:00 11/07/17 20:59 Clopidogrel Bisulfate (plAVix TAB) 75 mg DAILY PO 10/08/17 09:00 11/07/17 08:59 10/08/17 07:54 75 MG Sodium Chloride 1,000 ml @ 100 mls/hr Q10H IV 10/08/17 07:45 11/07/17 07:44 10/08/17 10:40 100 MLS/HR Potassium Chloride (Klor-Con Tab) 40 meq Q6H PO 10/08/17 10:30 10/08/17 16:31 Ceftriaxone Sodium 1 gm/ Dextrose 50 ml @ 100 mls/hr Q24H IV 10/08/17 12:00 10/13/17 11:59
[2017-10-08 12:37] LABS: CALCIUM 7.4 mg/dl (8.5-10.1); CREATININE 0.67 mg/dl (0.60-1.20); POTASSIUM 3.3 mmol/L (3.5-5.1)
[2017-10-08] MEDS: POTASSIUM CHLORIDE 20 MEQ TABCR PO SCH ×2 (13:05→17:05)
[2017-10-08] MEDS ORDERED: SODIUM CHLORIDE 3% 500 ML BAG IV STA (13:29)
[2017-10-08] MEDS ORDERED: NON-FORMULARY MEDICATION SCH (15:15)
--- NOTE | 2017-10-08 16:07 | NEPHROLOGY CONSULTATION ---
DATE OF CONSULTATION: 10/08/2017 REFERRING PHYSICIAN: Dr. Moffett. REASON FOR CONSULTATION: Hyponatremia. HISTORY OF PRESENT ILLNESS: This is an 87-year-old female with an ileostomy and a colostomy, who has had nausea and vomiting and had lab work done, showing a sodium level of 112, magnesium level of 1.1 and low potassium. The patient was clinically appeared volume depleted and was given aggressive fluid resuscitation. The patient's sodium level went from 112 to 114. On repeat, sodium level trended back down to 112. The patient was becoming more confused and we decided to do 3% normal saline at 100 mL, given at 75 mL an hour and then we will repeat the sodium levels. The patient's mental status has been waxing and waning. Currently, the patient knows her name, knows that she is in the hospital, knows the year and knows the President. Her appetite has been good and she has been eating well. The patient was diagnosed with a presumed urinary tract infection. The urine had a significant odor to it as well as the stools. Stool cultures are pending. C. diff is negative. PAST MEDICAL HISTORY: Uterine cancer, hypertension, and previous hyponatremia. PAST SURGICAL HISTORY: Colostomy and urostomy as well as a cholecystectomy in the past. FAMILY HISTORY: Significant for cancer and diabetes. SOCIAL HISTORY: No smoking, no alcohol, and no drugs. Lives with family. CURRENT MEDICATIONS: 1. Lovenox 40 mg subQ daily. 2. Norvasc 5 mg a day. 3. Ceftriaxone 1 gram IV daily. 4. Potassium 40 mEq p.o. q. 6 hours. 5. Plavix 75 mg a day. 6. Currently getting 3% normal saline at 100 mL an hour. REVIEW OF SYSTEMS: Difficult to obtain secondary to the patient's waxing and waning mental status, but currently is comfortable with a good appetite, although presented with nausea and vomiting. Does not have any nausea and vomiting at this time. Denies any shortness of breath or chest pain. Denies any headaches, fevers or chills. Appetite is good. All other review of systems otherwise negative. PHYSICAL EXAMINATION: VITAL SIGNS: Temperature 36.7, pulse 76, respiratory rate 18, blood pressure 131/73, and satting 92% on room air. GENERAL: Awake, alert, and oriented x3, although mental status is waxing and waning. HEENT: Mucous membranes are dry. Eyes: No scleral icterus. NECK: Supple. PULMONARY: Clear to auscultation. CARDIAC: 2/6 systolic murmur. ABDOMEN: Bowel sounds positive. Positive colostomy. Positive urostomy. EXTREMITIES: No significant clubbing, cyanosis or edema. NEUROLOGICALLY: Nonfocal, although mental status does wax and wane. DERMATOLOGIC: No rash noted. LABORATORIES: Last labs, sodium level is 112, potassium 3.3 up from 2.5, chloride 76, bicarbonate is 26, BUN is 10, creatinine 0.67, and glucose is 102. Serum osmolality is 241. Calcium 7.4. T-bili is 1.1. Albumin is 2.8. White count is 10, H&H 13 and 37, and platelet count is 148. Urine osmolality of 306. UA with 3+ blood, pH of 8.5, specific gravity of 1.011, 2+ protein, greater than 30 WBCs, 10-30 RBCs, and 4+ bacteria. C. diff negative. Stool cultures, urine cultures, and blood cultures are pending. IMPRESSION AND PLAN: 1. Hyponatremia. The patient's volume status appears to be depleted. Sodium levels should improve with normal saline. However, sodium level did not significantly improve with current normal saline with sodium level dropping from 114 to 112. However, that was also in the setting of the patient getting ceftriaxone, which is mixed in D5W at 50 mL, which may have also worsened the sodium levels. The patient still is eating and drinking well. For now, we will place on a fluid restriction and continue 3% normal saline for a total of 100 mL and repeat the sodium level. Still feel the patient's sodium levels are low secondary to hypovolemia. I would like to restart the normal saline after the 3% normal saline is done. 2. Hypokalemia. Potassium levels are also trending up from 2.5 to 3.3. We have to be careful about overcorrection in this patient and both sodium and potassium should be carefully corrected. We will double check with pharmacy and see if ceftriaxone can be mixed in normal saline and double check that the patient is on a fluid restriction. I appreciate the consultation. NADIR
[2017-10-08 16:39] LABS: CALCIUM 6.9 mg/dl (8.5-10.1); CREATININE 0.71 mg/dl (0.60-1.20); POTASSIUM 3.6 mmol/L (3.5-5.1)
[2017-10-08] MEDS ORDERED: CALCIUM GLUCONATE 10% 1,000 MG in SODIUM CHLORIDE 0.9% 50ML 50 ML IV ONE (16:45)
[2017-10-08] MEDS ORDERED: SODIUM CHLORIDE 3% 500 ML BAG IV ONE (17:00)
[2017-10-08] MEDS ORDERED: NURSING VERBAL MED ORDER ONE (17:15)
[2017-10-08] MEDS ORDERED: SODIUM CHLORIDE 3% INJ 500 ML IV SCH (17:15)
[2017-10-08 20:53] LABS: ALBUMIN 2.5 gm/dl (3.4-5.0); CREATININE 0.71 mg/dl (0.60-1.20); POTASSIUM 3.8 mmol/L (3.5-5.1)
[2017-10-08 20:56] LABS: TOTAL PROTEIN 6.5 gm/dl (6.4-8.2)
[2017-10-08] MEDS: AMLODIPINE BESYLATE 5 MG TAB PO SCH (21:18)
[2017-10-09 04:00] VITALS: BP 130/66; PULSE 74; TEMP 36.7; O2SAT 98
[2017-10-09 04:51] LABS: CALCIUM 7.6 mg/dl (8.5-10.1); CREATININE 0.88 mg/dl (0.60-1.20); PHOSPHORUS 1.6 mg/dl (2.5-4.9)
[2017-10-09] MEDS: SODIUM CHLORIDE 0.9% 1000ML 1,000 ML IV SCH ×2 (06:15→15:34)
--- NOTE | 2017-10-09 06:22 | Nephrology Progress Note ---
Nephrology Progress Note Date of Service: Oct 09, 2017. Subjective 87 yo female with significant hyponatremia which did not improve initially with normal saline. mental status began to wax and wane and decided to give 100cc of 3%normal saline. sodium level only improved by one point up to 113 and given another 200cc of 3%normal saline last night and improved to 118. stopped all fluids since then and sodium is stable at 118. pt appears comfortable and alert today. Objective Date Time Temp Pulse Resp B/P (MAP) Pulse Ox O2 Delivery O2 Flow Rate FiO2 10/09/17 04:00 36.7 74 18 130/66 (87) 98 Room Air 10/09/17 04:00 Room Air 10/09/17 00:00 Room Air 10/08/17 23:45 37.1 70 18 136/69 (91) 95 10/08/17 20:00 36.8 72 20 123/69 (87) 92 Room Air 10/08/17 20:00 Room Air 10/08/17 16:00 Room Air 10/08/17 15:37 37.0 71 18 124/70 (88) 94 Room Air 10/08/17 12:49 Room Air 10/08/17 12:49 36.7 76 18 131/73 (92) 92 Room Air 10/08/17 08:00 92 Room Air 10/08/17 07:33 37.0 74 18 138/72 (94) 93 Nasal Cannula 1.0 Physical Exam: General-aaox3 Eyes-no scleral icterus ENT-mm dry Neck-supple Lungs-cta Heart-rrr Abdomen-+urostomy, +colostomy Extremities-no c/c/e Neuro-nonfocal Current Inpatient Medications Medications (Trade) Dose Ordered Sig/Vianey Route Start Time Stop Time Status Last Admin Dose Admin Ondansetron HCl (Zofran Inj) 4 mg Q4H PRN IV 10/08/17 02:30 11/07/17 02:29 10/08/17 23:52 4 MG Amlodipine Besylate (Norvasc Tab) 5 mg QPM PO 10/08/17 21:00 11/07/17 20:59 10/08/17 21:18 5 MG Clopidogrel Bisulfate (plAVix TAB) 75 mg DAILY PO 10/08/17 09:00 11/07/17 08:59 10/08/17 07:54 75 MG Enoxaparin Sodium (Lovenox Inj) 40 mg QAM SQ 10/09/17 09:00 11/08/17 08:59 Ceftriaxone Sodium 1000 mg/ Sodium Chloride 60 ml @ 120 mls/hr Q24H IV 10/09/17 12:00 10/14/17 11:59 Sodium Chloride 1,000 ml @ 50 mls/hr Q20H IV 10/09/17 06:15 11/08/17 06:14 10/09/17 06:15 50 MLS/HR Last 24 Hours Test 10/08/17 06:28 10/08/17 08:30 10/08/17 11:55 10/08/17 16:01 Sodium Level 114 mmol/L 112 mmol/L 113 mmol/L Potassium Level 2.9 mmol/L 3.3 mmol/L 3.6 mmol/L Chloride Level 77 mmol/L 76 mmol/L 80 mmol/L Carbon Dioxide Level 27 mmol/L 26 mmol/L 26 mmol/L Anion Gap 10.0 mmol/L 9.0 mmol/L 7.0 mmol/L Blood Urea Nitrogen 11 mg/dl 10 mg/dl 9 mg/dl Creatinine 0.68 mg/dl 0.67 mg/dl 0.71 mg/dl Est Creatinine Clear Calc Drug Dose 52.9 ml/min 53.7 ml/min 50.7 ml/min Estimated GFR () 90.5 91.0 88.1 Estimated GFR (Non- 78.1 78.5 76.0 BUN/Creatinine Ratio 16.1 14.4 13.1 Random Glucose 107 mg/dl 102 mg/dl 91 mg/dl Calcium Level 7.7 mg/dl 7.4 mg/dl 6.9 mg/dl Magnesium Level 2.2 mg/dl Total Bilirubin 1.1 mg/dl Aspartate Amino Transf (AST/SGOT) 37 U/L Alanine Aminotransferase (ALT/SGPT) 38 U/L Alkaline Phosphatase 67 U/L Total Protein 7.1 gm/dl Albumin 2.8 gm/dl Globulin 4.3 gm/dl Albumin/Globulin Ratio 0.7 Urine Osmolality 306 mOms/kg Thyroid Stimulating Hormone (TSH) 1.300 uIu/ml Test 10/08/17 19:58 10/09/17 03:53 Sodium Level 118 mmol/L 118 mmol/L Potassium Level 3.8 mmol/L 4.0 mmol/L Chloride Level 84 mmol/L 87 mmol/L Carbon Dioxide Level 27 mmol/L 22 mmol/L Anion Gap 7.0 mmol/L 9.0 mmol/L Blood Urea Nitrogen 9 mg/dl 10 mg/dl Creatinine 0.71 mg/dl 0.88 mg/dl Est Creatinine Clear Calc Drug Dose 50.7 ml/min 40.9 ml/min Estimated GFR () 88.1 68.0 Estimated GFR (Non- 76.0 58.7 BUN/Creatinine Ratio 12.9 11.9 Random Glucose 86 mg/dl 95 mg/dl Calcium Level 7.0 mg/dl 7.6 mg/dl Total Bilirubin 0.6 mg/dl Aspartate Amino Transf (AST/SGOT) 37 U/L Alanine Aminotransferase (ALT/SGPT) 33 U/L Alkaline Phosphatase 61 U/L Total Protein 6.5 gm/dl Albumin 2.5 gm/dl Globulin 4.0 gm/dl Albumin/Globulin Ratio 0.6 Prothrombin Time 10.3 SECONDS Prothromb Time International Ratio 1.0 Phosphorus Level 1.6 mg/dl Magnesium Level 1.8 mg/dl Date/Time Source Procedure Growth Status 10/08/17 08:30 Stool Shiga Toxin Test Pending Received 10/08/17 08:30 Stool Stool Culture Pending Received 10/08/17 08:30 Stool C.difficile Toxin B Gene (PCR) - Final No C. difficile toxin B gene detected Complete Assessment & Plan hyponatremia-feel pt has hyponatremia from volume depletion and restarted normal saline at low rate of 50cc/hr and rechecking bmp about four hours later at 10am. rechecking urine osm as well. perhaps may have element of siadh as well if sodium worsens on the normal saline. hypophosphatemia-will give iv phos supplementation. hypokalemia-k levels have improved nicely, will decrease the k supplementation. pt told me she follows with Dr. Cuello and will transfer care to his service.
[2017-10-09] MEDS ORDERED: SODIUM PHOSPHATE INJ 15 MMOL in SODIUM CHLORIDE 0.9% 250ML 250 ML IV STA (06:26)
[2017-10-09] MEDS ORDERED: SODIUM PHOSPHATE 3 MMOL/1 ML INFUSION IV ONE (06:30)
[2017-10-09 07:40] VITALS: BP 138/71; PULSE 82; TEMP 36.5; O2SAT 93
[2017-10-09 07:41] VITALS: BP 145/60; PULSE 72; TEMP 36.3; O2SAT 97
[2017-10-09] MEDS: ENOXAPARIN 40 MG/0.4 ML SYR SQ SCH (08:30)
[2017-10-09] MEDS: CLOPIDOGREL BISULFATE 75 MG TAB PO SCH (08:30)
[2017-10-09] MEDS ORDERED: POT PHOSPHATE MONOBASIC W/ SOD TAB PO SCH (09:00)
--- NOTE | 2017-10-09 09:46 | Clinical Documentation Query ---
CLINICAL DOCUMENTATION QUERY Dr. STEPHENS, In your clinical opinion is this patient being managed for: ( ) Metabolic encephalopathy in the setting of hyponatremia ( x ) Not Agree ( ) Other explanation of clinical findings (Please Explain) ( ) Unable to determine (Please Define) ( ) Need to Discuss The medical record reflects the following clinical findings, treatment, and risk factors. Clinical Indicators: 87 yo female presenting with vomiting, difficulty with oral intake. Documentation by nephrology indicates pt's mental status has been waxing and waning and was becoming more confused at the time of nephrology initial consult. Treatment: nephrology consult, fluid restriction, 3% NSS IV, monitor PRP's, urine and serum osmo Risk Factors:vomiting, hx hyponatremia, hx uterine cancer Please clarify and document your clinical opinion in the progress notes and discharge summary. Terms such as "probable", "suspected", "likely", "questionable", "possible", or "still to be ruled out" are acceptable. IF IN AGREEMENT, YOU MUST DOCUMENT ABOVE DIAGNOSTIC STATEMENT IN DAILY PROGRESS NOTES AND DISCHARGE SUMMARY. This document is not part of the patient's record. Thank You, Moriah Ballesteros RN [phone]
[2017-10-09 10:33] LABS: CALCIUM 7.5 mg/dl (8.5-10.1); CREATININE 1.06 mg/dl (0.60-1.20); POTASSIUM 3.7 mmol/L (3.5-5.1)
--- NOTE | 2017-10-09 11:11 | Nephrology Consultation ---
Nephrology Consultation Date & Providers Date of Consultation: Oct 09, 2017. Primary Care Provider: Lucio Carlos M.D. Referring Provider: Reason for Consultation Hyponatremia History of Present Illness Ms. Kapadia was seen & examined at the request of Dr. Kapadia. He was initially consulted for management of hyponatremia and later discovered that patient is established w/ [facility]. Medical records in the hospital EMR were reviewed and are summarized as follows: Ms. Kapadia has a history of cervical carcinoma. She required hysterectomy and radiation therapy. This was complicated by rectovaginal fistula formation and bladder perforation. Ms. Kapadia required sigmoid colectomy w/ colostomy formation and creation of a urostomy. Her medical history has been complicated by recurrent CaOx and CaPO4 kidney stones. She has required lithotripsy on several occasions. She has shown good response to aggressive oral hydration, thiazide diuretic and potassium citrate therapy. Litholink studies have shown low supersaturation of stone forming elements. May 2017 Urology evaluation revealed no kidney stones on KUB x-ray. Ms. Kapadia's serum sodium has been 131 - 140 mMol/L while on thiazide diuretics. Yesterday Ms. Kapadia presented to the ED for evaluation of weakness. She related a 24 hour history of recurrent emesis and decreased urostomy and colostomy output. Her presenting serum sodium was 112 mMol/L. This remained unchanged despite one liter 0.9NS. Dr. Kapadia assessed Ms. Kapadia and provided 3% NaCl. Serum sodium has risen from 112 to 118 mMol /L over the last 24 hours. Ms. Kapdaia is now symptomatically improved. At the time of my evaluation she was sitting up in a chair. She is oriented to self, place and month. She reports improved strength and complains of thirst. Past Medical/Surgical History Medical: # Calcium based kidney stones # HTN # Cervical carcinoma s/p hysterectomy and radiation tx Surgical: # Hysterectomy # LLQ Colostomy # RLQ Urostomy Allergies Coded Allergies: NSAIDs (Verified Allergy, Unknown, UNKNOWN, 08/02/15) Rosuvastatin (Verified Allergy, Unknown, ITCHING, 08/02/15) Wheat (Verified Allergy, Unknown, puritis, 08/02/15) Tomato (Verified Adverse Reaction, Mild, HEADACHE, SWOLLEN TONGUE, ) Lisinopril (Verified Adverse Reaction, Unknown, SHORTNESS OF BREATH, ) angioedema Inpatient Medications Current Inpatient Medications Medications (Trade) Dose Ordered Sig/Vianey Route Start Time Stop Time Status Last Admin Dose Admin Ondansetron HCl (Zofran Inj) 4 mg Q4H PRN IV 10/08/17 02:30 11/07/17 02:29 10/08/17 23:52 4 MG Amlodipine Besylate (Norvasc Tab) 5 mg QPM PO 10/08/17 21:00 11/07/17 20:59 10/08/17 21:18 5 MG Clopidogrel Bisulfate (plAVix TAB) 75 mg DAILY PO 10/08/17 09:00 11/07/17 08:59 10/09/17 08:30 75 MG Enoxaparin Sodium (Lovenox Inj) 40 mg QAM SQ 10/09/17 09:00 11/08/17 08:59 10/09/17 08:30 40 MG Ceftriaxone Sodium 1000 mg/ Sodium Chloride 60 ml @ 120 mls/hr Q24H IV 10/09/17 12:00 10/14/17 11:59 Sodium Chloride 1,000 ml @ 50 mls/hr Q20H IV 10/09/17 06:15 11/08/17 06:14 10/09/17 06:15 50 MLS/HR Family History Cancer Diabetes mellitus Negative for CKD / ESRD Social History Smoking Status: Never Smoker Drug Use: none Marital Status: Housing Status: lives with family 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 Review of Systems Constitutional: No fever Respiratory: No cough Cardiovascular: No chest pain Abdomen: + nausea, No pain Genitourinary - Female: No dysuria A complete review of systems was performed. Pertinent positives are noted above. All other systems are negative. Physical Exam Date Time Temp Pulse Resp B/P (MAP) Pulse Ox O2 Delivery O2 Flow Rate FiO2 10/09/17 07:41 36.3 72 16 145/60 (88) 97 Room Air 10/09/17 07:40 36.5 82 16 138/71 (93) 93 Room Air 10/09/17 04:00 36.7 74 18 130/66 (87) 98 Room Air 10/09/17 04:00 Room Air 10/09/17 00:00 Room Air 10/08/17 23:45 37.1 70 18 136/69 (91) 95 10/08/17 20:00 36.8 72 20 123/69 (87) 92 Room Air 10/08/17 20:00 Room Air 10/08/17 16:00 Room Air 10/08/17 15:37 37.0 71 18 124/70 (88) 94 Room Air 10/08/17 12:49 Room Air 10/08/17 12:49 36.7 76 18 131/73 (92) 92 Room Air General Appearance: no apparent distress Head: normocephalic, atraumatic Eyes: PERRL, EOMI ENT: + pertinent finding (dry mucous membranes) Neck: no adenopathy Respiratory/Chest: lungs clear, no respiratory distress Cardiovascular: regular rate, rhythm Abdomen/GI: non tender, soft, + pertinent finding (RLQ urostomy, LLQ colostomy) Extremities/Musculoskelatal: no pedal edema (poor skin turgor) Neurologic/Psych: alert, oriented x 3 Skin: warm/dry Laboratory Results Last 24 Hours Test 10/08/17 11:55 10/08/17 16:01 10/08/17 19:58 10/09/17 03:53 Sodium Level 112 mmol/L 113 mmol/L 118 mmol/L 118 mmol/L Potassium Level 3.3 mmol/L 3.6 mmol/L 3.8 mmol/L 4.0 mmol/L Chloride Level 76 mmol/L 80 mmol/L 84 mmol/L 87 mmol/L Carbon Dioxide Level 26 mmol/L 26 mmol/L 27 mmol/L 22 mmol/L Anion Gap 9.0 mmol/L 7.0 mmol/L 7.0 mmol/L 9.0 mmol/L Blood Urea Nitrogen 10 mg/dl 9 mg/dl 9 mg/dl 10 mg/dl Creatinine 0.67 mg/dl 0.71 mg/dl 0.71 mg/dl 0.88 mg/dl Est Creatinine Clear Calc Drug Dose 53.7 ml/min 50.7 ml/min 50.7 ml/min 40.9 ml/min Estimated GFR () 91.0 88.1 88.1 68.0 Estimated GFR (Non- 78.5 76.0 76.0 58.7 BUN/Creatinine Ratio 14.4 13.1 12.9 11.9 Random Glucose 102 mg/dl 91 mg/dl 86 mg/dl 95 mg/dl Calcium Level 7.4 mg/dl 6.9 mg/dl 7.0 mg/dl 7.6 mg/dl Thyroid Stimulating Hormone (TSH) 1.300 uIu/ml Total Bilirubin 0.6 mg/dl Aspartate Amino Transf (AST/SGOT) 37 U/L Alanine Aminotransferase (ALT/SGPT) 33 U/L Alkaline Phosphatase 61 U/L Total Protein 6.5 gm/dl Albumin 2.5 gm/dl Globulin 4.0 gm/dl Albumin/Globulin Ratio 0.6 Prothrombin Time 10.3 SECONDS Prothromb Time International Ratio 1.0 Phosphorus Level 1.6 mg/dl Magnesium Level 1.8 mg/dl Test 10/09/17 08:25 10/09/17 09:56 Urine Osmolality 281 mOms/kg Sodium Level 118 mmol/L Potassium Level 3.7 mmol/L Chloride Level 86 mmol/L Carbon Dioxide Level 21 mmol/L Anion Gap 11.0 mmol/L Blood Urea Nitrogen 11 mg/dl Creatinine 1.06 mg/dl Est Creatinine Clear Calc Drug Dose 33.9 ml/min Estimated GFR () 54.3 Estimated GFR (Non- 46.8 BUN/Creatinine Ratio 10.0 Random Glucose 98 mg/dl Calcium Level 7.5 mg/dl Impression (1) Hyponatremia (2) Hypokalemia (3) History of uterine cancer (4) History of kidney stones Hypoosmolar hyponatremia. Patient has been on thiazide diuretic therapy for blood pressure and kidney stone management. Expect urine osmolality < 100. Elevated osmolality is c/w patient's volume contracted state. Patient appears euthyroid and has no evidence of CKD or adrenal insufficiency Recommendations -- Neurologically intact this am. Rate of serum sodium correction is appropriate. No acute indication for further 3% NaCl at this time -- Will provide gentle hydration w/ 0.9 NS -- Recheck PRP at 1500 hrs -- Will need to avoid thiazide diuretics -- Agree w/ free water restriction at this time
[2017-10-09 11:36] VITALS: BP 124/68; PULSE 79; TEMP 36.8; O2SAT 96
[2017-10-09] MEDS ORDERED: CEFTRIAXONE SOD INJ 1000 MG in DEXTROSE 5% 50ML IV SCH (12:00)
[2017-10-09 15:20] VITALS: BP 135/73; PULSE 69; TEMP 36.8; O2SAT 96
[2017-10-09 15:30] LABS: CALCIUM 7.6 mg/dl (8.5-10.1); CREATININE 0.89 mg/dl (0.60-1.20); POTASSIUM 3.3 mmol/L (3.5-5.1)
[2017-10-09] MEDS ORDERED: NURSING VERBAL MED ORDER ONE (16:15)
[2017-10-09] MEDS ORDERED: POTASSIUM CHLORIDE 20 MEQ TABCR PO ONE (16:30)
--- NOTE | 2017-10-09 18:36 | Progress Note ---
Medicine Progress Note Date & Time of Visit: Oct 09, 2017 at 18:28. Subjective 87 yo F with one day h/o vomiting presents with hyponatremia. She reports to me today that in preparation for her nephrology appointment next week for kidney stones she was drinking higher amounts of free water at home consistently over the last week prior to arrival. She estimates she was drinking roughly five 16 ounce glasses of water a day. Additionally she was on her diuretic. This led to the nausea and vomiting she experienced prior to arrival, all of which contributed to her low sodium most likely. She is much more alert today and conversant. Daughter is at bedside and reports clinical improvement. The patient is tolerating p.o., denies nausea, denies abdominal pain, denies chest pain or shortness of breath or any other symptom at this time. She continues on fluid restriction. Objective Last 8 Hrs Date Time Temp Pulse Resp B/P (MAP) Pulse Ox O2 Delivery O2 Flow Rate FiO2 10/09/17 15:20 36.8 69 18 135/73 (93) 96 Nasal Cannula 10/09/17 11:36 36.8 79 20 124/68 (86) 96 Room Air Physical Exam: GEN: WNWD, in no acute distress, alert and appropriate HEENT: NC/AT, normal sclerae, MMM CARDIO: reg rate, S1/2 heard without m/g/r LUNGS: CTA bilaterally, no crackles, rales or wheezes, good diaphragmatic excursion ABD: soft, non-tender, non-distended, no rebound or guarding, +BS, two ostomy sites with foul-smelling stool. EXTREMITY: RP and DP palpable 2+ bilat, no LE swelling or edema, extremities are warm and well-perfused NEURO: CN 2-12 grossly intact MUSC: generalized weakness, cannot sit up in bed on her own. SKIN: warm and dry Laboratory Results: 10/08/17 00:27 Red Blood Count 4.30, Mean Corpuscular Volume 86.0, Mean Corpuscular Hemoglobin 31.6, Mean Corpuscular Hemoglobin Concent 36.8, Mean Platelet Volume 8.5, Neutrophils (%) (Auto) 81.5, Lymphocytes (%) (Auto) 10.5, Monocytes (%) (Auto) 7.3, Eosinophils (%) (Auto) 0.4, Basophils (%) (Auto) 0.1, Neutrophils # (Auto) 8.57, Lymphocytes # (Auto) 1.10, Monocytes # (Auto) 0.77, Eosinophils # (Auto) 0.04, Basophils # (Auto) 0.01 10/09/17 14:50 Test 10/08/17 00:27 10/08/17 00:41 10/08/17 16:01 10/08/17 19:58 White Blood Count 10.51 K/uL (4.8-10.8) Red Blood Count 4.30 M/uL (4.2-5.4) Hemoglobin 13.6 g/dL (12.0-16.0) Hematocrit 37.0 % (37-47) Mean Corpuscular Volume 86.0 fL (80-100) Mean Corpuscular Hemoglobin 31.6 pg (25-34) Mean Corpuscular Hemoglobin Concent 36.8 g/dl (32-36) Platelet Count 148 K/uL (130-400) Mean Platelet Volume 8.5 fL (7.4-10.4) Neutrophils (%) (Auto) 81.5 % Lymphocytes (%) (Auto) 10.5 % Monocytes (%) (Auto) 7.3 % Eosinophils (%) (Auto) 0.4 % Basophils (%) (Auto) 0.1 % Neutrophils # (Auto) 8.57 K/uL (1.4-6.5) Lymphocytes # (Auto) 1.10 K/uL (1.2-3.4) Monocytes # (Auto) 0.77 K/uL (0.11-0.59) Eosinophils # (Auto) 0.04 K/uL (0-0.5) Basophils # (Auto) 0.01 K/uL (0-0.2) RDW Standard Deviation 38.7 fL (36.4-46.3) RDW Coefficient of Variation 12.3 % (11.5-14.5) Immature Granulocyte % (Auto) 0.2 % Immature Granulocyte # (Auto) 0.02 K/uL (0.00-0.02) Osmolality 241 mOsm/kg (280-300) Troponin I 0.027 ng/ml (0-0.045) Urine Color YELLOW Urine Appearance TURBID (CLEAR) Urine pH 8.5 (4.5-7.5) Urine Specific [place] 1.011 (1.000-1.030) Urine Protein 2+ (NEG) Urine Glucose (UA) NEG (NEG) Urine Ketones NEG (NEG) Urine Occult Blood 3+ (NEG) Urine Nitrite NEG (NEG) Urine Bilirubin NEG (NEG) Urine Urobilinogen NEG (NEG) Urine Leukocyte Esterase LARGE (NEG) Urine WBC (Auto) >30 /hpf (0-5) Urine RBC (Auto) 10-30 /hpf (0-4) Urine Hyaline Casts (Auto) 0 /lpf (0-5) Urine Epithelial Cells (Auto) >30 /lpf (0-5) Urine Bacteria (Auto) 4+ (NEG) Urine Pathogenic Casts /lpf (0) Urine Yeast (Auto) (NONE PRSENT) Thyroid Stimulating Hormone (TSH) 1.300 uIu/ml (0.300-4.500) Total Bilirubin 0.6 mg/dl (0.2-1) Aspartate Amino Transf (AST/SGOT) 37 U/L (15-37) Alanine Aminotransferase (ALT/SGPT) 33 U/L (12-78) Alkaline Phosphatase 61 U/L (45-117) Total Protein 6.5 gm/dl (6.4-8.2) Albumin 2.5 gm/dl (3.4-5.0) Globulin 4.0 gm/dl (2.5-4.0) Albumin/Globulin Ratio 0.6 (0.9-2) Test 10/09/17 03:53 10/09/17 08:25 10/09/17 14:50 Prothrombin Time 10.3 SECONDS (9.0-12.0) Prothromb Time International Ratio 1.0 (0.9-1.1) Phosphorus Level 1.6 mg/dl (2.5-4.9) Magnesium Level 1.8 mg/dl (1.8-2.4) Urine Osmolality 281 mOms/kg (500-800) Anion Gap 10.0 mmol/L (3-11) Est Creatinine Clear Calc Drug Dose 40.4 ml/min Estimated GFR () 67.1 Estimated GFR (Non- 57.9 BUN/Creatinine Ratio 12.0 (10-20) Calcium Level 7.6 mg/dl (8.5-10.1) Date/Time Source Procedure Growth Status 10/08/17 03:03 Blood Blood Culture - Preliminary NO GROWTH TO DATE. Resulted 10/08/17 08:30 Stool Shiga Toxin Test - Preliminary No E. Coli shiga toxin 1 or shiga tox... Resulted 10/08/17 08:30 Stool Stool Culture - Preliminary NO SALMONELLA ISOLATED TO DATE,... Resulted 10/08/17 00:41 Urine , Clean Catch Urine Culture - Final THREE TYPES OF ORGANISMS PRESENT, ALL... Complete Last 24 Hours Test 10/08/17 19:58 10/09/17 03:53 10/09/17 08:25 10/09/17 09:56 Sodium Level 118 mmol/L 118 mmol/L 118 mmol/L Potassium Level 3.8 mmol/L 4.0 mmol/L 3.7 mmol/L Chloride Level 84 mmol/L 87 mmol/L 86 mmol/L Carbon Dioxide Level 27 mmol/L 22 mmol/L 21 mmol/L Anion Gap 7.0 mmol/L 9.0 mmol/L 11.0 mmol/L Blood Urea Nitrogen 9 mg/dl 10 mg/dl 11 mg/dl Creatinine 0.71 mg/dl 0.88 mg/dl 1.06 mg/dl Est Creatinine Clear Calc Drug Dose 50.7 ml/min 40.9 ml/min 33.9 ml/min Estimated GFR () 88.1 68.0 54.3 Estimated GFR (Non- 76.0 58.7 46.8 BUN/Creatinine Ratio 12.9 11.9 10.0 Random Glucose 86 mg/dl 95 mg/dl 98 mg/dl Calcium Level 7.0 mg/dl 7.6 mg/dl 7.5 mg/dl Total Bilirubin 0.6 mg/dl Aspartate Amino Transf (AST/SGOT) 37 U/L Alanine Aminotransferase (ALT/SGPT) 33 U/L Alkaline Phosphatase 61 U/L Total Protein 6.5 gm/dl Albumin 2.5 gm/dl Globulin 4.0 gm/dl Albumin/Globulin Ratio 0.6 Prothrombin Time 10.3 SECONDS Prothromb Time International Ratio 1.0 Phosphorus Level 1.6 mg/dl Magnesium Level 1.8 mg/dl Urine Osmolality 281 mOms/kg Test 10/09/17 14:50 Sodium Level 122 mmol/L Potassium Level 3.3 mmol/L Chloride Level 90 mmol/L Carbon Dioxide Level 22 mmol/L Anion Gap 10.0 mmol/L Blood Urea Nitrogen 11 mg/dl Creatinine 0.89 mg/dl Est Creatinine Clear Calc Drug Dose 40.4 ml/min Estimated GFR () 67.1 Estimated GFR (Non- 57.9 BUN/Creatinine Ratio 12.0 Random Glucose 100 mg/dl Calcium Level 7.6 mg/dl Assessment & Plan 87 yo F with one day h/o vomiting presents with hyponatremia. She reports to me today that in preparation for her nephrology appointment next week for kidney stones she was drinking higher amounts of free water at home consistently over the last week prior to arrival. She estimates she was drinking roughly five 16 ounce glasses of water a day. Additionally she was on her diuretic. This led to the nausea and vomiting she experienced prior to arrival, all of which contributed to her low sodium most likely. She is much more alert today and conversant. Daughter is at bedside and reports clinical improvement. The patient is tolerating p.o., denies nausea, denies abdominal pain, denies chest pain or shortness of breath or any other symptom at this time. She continues on fluid restriction. 1. Hypovolemic Hypotonic Hyponatremia-likely related to combination of increased free water intake, nausea and vomiting, diuretic use. Diuretic is currently held nephrology following and has her on 100 cc an hour of normal saline with appropriate increase in sodium. Hypertonic saline was given yesterday. Patient is clinically improved. Continue free water restriction per nephrology. 2. UTI-Rocephin started empirically Urine culture returned negative. Stopping Rocephin now. 3. s/p abdominal surgery with bilateral ostomy sites. C-diff negative. Stool studies are pending. 4. Hypophosphatemia-replaced recheck in a.m. 5. HTN-cont amlopdipine, holding atenolol and maxzide in setting of volume depletion. 6. PVD-cont Plavix DVT ppx-Lovenox Full Code [facility] Consultants: Neil Current Inpatient Medications: Current Inpatient Medications Medications (Trade) Dose Ordered Sig/Vianey Route Start Time Stop Time Status Last Admin Dose Admin Ondansetron HCl (Zofran Inj) 4 mg Q4H PRN IV 10/08/17 02:30 11/07/17 02:29 10/08/17 23:52 4 MG Amlodipine Besylate (Norvasc Tab) 5 mg QPM PO 10/08/17 21:00 11/07/17 20:59 10/08/17 21:18 5 MG Clopidogrel Bisulfate (plAVix TAB) 75 mg DAILY PO 10/08/17 09:00 11/07/17 08:59 10/09/17 08:30 75 MG Enoxaparin Sodium (Lovenox Inj) 40 mg QAM SQ 10/09/17 09:00 11/08/17 08:59 10/09/17 08:30 40 MG Ceftriaxone Sodium 1000 mg/ Sodium Chloride 60 ml @ 120 mls/hr Q24H IV 10/09/17 12:00 10/14/17 11:59 10/09/17 13:12 120 MLS/HR Sodium Chloride 1,000 ml @ 100 mls/hr Q10H IV 10/09/17 06:15 11/08/17 06:14 10/09/17 15:34 100 MLS/HR
[2017-10-09 19:49] VITALS: BP 122/72; PULSE 65; TEMP 36.9; O2SAT 97
[2017-10-09] MEDS: AMLODIPINE BESYLATE 5 MG TAB PO SCH (20:32)
[2017-10-10] VITALS (7 sets, daily range): BP systolic 123–137; BP diastolic 72–79; PULSE 55–106; TEMP 36.5–37.5; O2SAT 94–96
[2017-10-10] MEDS: SODIUM CHLORIDE 0.9% 1000ML 1,000 ML IV SCH (01:37)
[2017-10-10 07:32] LABS: CALCIUM 7.5 mg/dl (8.5-10.1); CREATININE 0.65 mg/dl (0.60-1.20); POTASSIUM 3.8 mmol/L (3.5-5.1)
[2017-10-10 07:50] LABS: PHOSPHORUS 1.5 mg/dl (2.5-4.9)
[2017-10-10] MEDS ORDERED: SODIUM PHOSPHATE 3 MMOL/1 ML INFUSION IV STA (08:19)
[2017-10-10] MEDS ORDERED: SODIUM PHOSPHATE INJ 24 MMOL in SODIUM CHLORIDE 0.9% 500ML 500 ML IV ONE (08:30)
[2017-10-10] MEDS: POT PHOSPHATE MONOBASIC W/ SOD TAB PO SCH ×4 (08:59→20:58)
[2017-10-10] MEDS: CLOPIDOGREL BISULFATE 75 MG TAB PO SCH (08:59)
[2017-10-10] MEDS: ENOXAPARIN 40 MG/0.4 ML SYR SQ SCH (08:59)
--- NOTE | 2017-10-10 12:51 | Nephrology Progress Note ---
Nephrology Progress Note Date of Service Oct 10, 2017. Chief Complaint Follow-up for hyponatremia. Yuko Gomez was seen and examined in her room this morning. She has been overall feeling well. Blood pressure stable. Serum sodium improved rapidly to 133. Electrolyte acceptable. Review of Systems A complete review of systems was performed. Pertinent positives are noted above. All other systems are negative. Vital Signs Last 8 Hrs Date Time Temp Pulse Resp B/P (MAP) Pulse Ox O2 Delivery O2 Flow Rate FiO2 10/10/17 12:04 36.5 66 18 133/75 (94) 95 Room Air 10/10/17 12:01 36.7 55 19 95 1.0 10/10/17 08:05 Room Air 10/10/17 07:55 36.7 55 19 123/72 (89) 95 Room Air Last Recorded Weight Weight (Kilograms): 71.700 Physical Exam GENERAL: Elderly female, AAA x 3, pleasant, healthy-appearing, not in any distress. NECK: Supple, no JVD. RESPIRATORY: Normal breathing efforts, no accessory muscle use, clear to auscultation bilaterally, no wheezes or rales. CARDIOVASCULAR: S1, S2 normal, rate rhythm regular. EXTREMITY: No lower extremity edema NEURO: speech fluent. 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 Laboratory Results Past 24 Hours 10/09/17 14:50 10/10/17 06:31 Test 10/09/17 14:50 10/10/17 06:31 Anion Gap 10.0 mmol/L (3-11) 8.0 mmol/L (3-11) Est Creatinine Clear Calc Drug Dose 40.4 ml/min 55.5 ml/min Estimated GFR () 67.1 91.9 Estimated GFR (Non- 57.9 79.3 BUN/Creatinine Ratio 12.0 (10-20) 13.9 (10-20) Calcium Level 7.6 mg/dl (8.5-10.1) 7.5 mg/dl (8.5-10.1) Phosphorus Level 1.5 mg/dl (2.5-4.9) Magnesium Level 2.1 mg/dl (1.8-2.4) Allergies Coded Allergies: NSAIDs (Verified Allergy, Unknown, UNKNOWN, 08/02/15) Rosuvastatin (Verified Allergy, Unknown, ITCHING, 08/02/15) Wheat (Verified Allergy, Unknown, puritis, 08/02/15) Tomato (Verified Adverse Reaction, Mild, HEADACHE, SWOLLEN TONGUE, ) Lisinopril (Verified Adverse Reaction, Unknown, SHORTNESS OF BREATH, ) angioedema Medications Current Inpatient Medications Medications (Trade) Dose Ordered Sig/Vianey Route Start Time Stop Time Status Last Admin Dose Admin Ondansetron HCl (Zofran Inj) 4 mg Q4H PRN IV 10/08/17 02:30 11/07/17 02:29 10/08/17 23:52 4 MG Amlodipine Besylate (Norvasc Tab) 5 mg QPM PO 10/08/17 21:00 11/07/17 20:59 10/09/17 20:32 5 MG Clopidogrel Bisulfate (plAVix TAB) 75 mg DAILY PO 10/08/17 09:00 11/07/17 08:59 10/10/17 08:59 75 MG Enoxaparin Sodium (Lovenox Inj) 40 mg QAM SQ 10/09/17 09:00 11/08/17 08:59 10/10/17 08:59 40 MG Potassium/ Phosphorus/Sodium (Phospha 250 Neutral 155-852-130 Mg) 1 tab QID PO 10/10/17 09:00 11/09/17 08:59 10/10/17 12:17 1 TAB Impression (1) Hyponatremia (2) Hypokalemia (3) History of uterine cancer (4) History of kidney stones Hypoosmolar hyponatremia. Patient has been on thiazide diuretic therapy for blood pressure and kidney stone management. Expect urine osmolality < 100. Elevated osmolality is c/w patient's volume contracted state. Patient appears euthyroid and has no evidence of CKD or adrenal insufficiency Recommendations -- discontinue IV fluid, repeat serum sodium in 3-4 hours, if serum sodium above 135 will start on D5 water -- Will need to avoid thiazide diuretics -- Agree w/ free water restriction at this time --if patient needs diuretics, loop diuretics would be a better choice. Will follow
--- NOTE | 2017-10-10 18:14 | Progress Note ---
Internal Med Progress Note Date of Service: Oct 10, 2017. Provider Documentation: SUBJECTIVE: resting comfortably no nausea or vomiting tolerating diet afebrile no chest pain or sob wants to go home but ok to stay until Thursday if needed. OBJECTIVE: Vital Signs-as noted below Exam: General-alert and oriented. Not in distress ENT-Normal hearing Neck-no neck masses Lungs-cta b/l no wheezing or crackles Heart-S 1 and s2 heard regular no murmurs Abdomen-soft bowel sounds present non tender no distension Extremities-no edema no erythema Neuro-alert and awake moves extremities Lab data as noted below. ASSESSMENT & PLAN: 87 yo F with one day h/o vomiting presents with hyponatremia..On diuretic for kidney stones 1. Hypovolemic Hyposmolar Hyponatremia-Most likely secondary nausea and vomiting, diuretic use. Diuretic is currently held . recived iv fluifs. Na improved to 133 today. f;uids stopped and recheck of Sodium 135. D/W nephrology. Plan to check again today evening and if still climbing up to start on D5W To avoid over correction. 2. UTI- was on Rocephin which is stopped now as cx negative. 3. s/p abdominal surgery with bilateral ostomy sites. C-diff negative. 4. Hypophosphatemia-replacing. 5. HTN-cont amlodipine, holding atenolol and maxzide in setting of volume depletion.Will monitor. 6. PVD-cont Plavix DVT PROPHYLAXIS Lovenox DISPOSITION transferred to medical floor Vital Signs: Date Time Temp Pulse Resp B/P (MAP) Pulse Ox O2 Delivery O2 Flow Rate FiO2 10/10/17 16:10 36.5 68 16 137/72 (93) 96 Room Air 10/10/17 15:40 Room Air 10/10/17 12:04 36.5 66 18 133/75 (94) 95 Room Air 10/10/17 12:01 36.7 55 19 95 1.0 10/10/17 12:00 Room Air 10/10/17 08:05 Room Air 10/10/17 07:55 36.7 55 19 123/72 (89) 95 Room Air 10/10/17 04:00 Room Air 10/10/17 03:28 36.6 70 18 125/76 (92) 96 Room Air 10/10/17 00:26 37.5 106 18 135/79 (97) 94 Room Air 10/10/17 00:01 Room Air 10/09/17 20:00 Room Air 10/09/17 19:49 36.9 65 19 122/72 (89) 97 Room Air Lab Results: Results Past 24 Hours Test 10/10/17 06:31 10/10/17 13:22 10/10/17 17:48 Range/Units Sodium Level 133 135 136-145 mmol/L Potassium Level 3.8 3.5-5.1 mmol/L Chloride Level 104 98-107 mmol/L Carbon Dioxide Level 21 21-32 mmol/L Anion Gap 8.0 3-11 mmol/L Blood Urea Nitrogen 9 7-18 mg/dl Creatinine 0.65 0.60-1.20 mg/dl Est Creatinine Clear Calc Drug Dose 55.5 ml/min Estimated GFR () 91.9 Estimated GFR (Non- 79.3 BUN/Creatinine Ratio 13.9 10-20 Random Glucose 78 70-99 mg/dl Calcium Level 7.5 8.5-10.1 mg/dl Phosphorus Level 1.5 2.5-4.9 mg/dl Magnesium Level 2.1 1.8-2.4 mg/dl
[2017-10-10] MEDS: AMLODIPINE BESYLATE 5 MG TAB PO SCH (20:58)
[2017-10-11 06:29] LABS: CALCIUM 7.7 mg/dl (8.5-10.1); CREATININE 0.75 mg/dl (0.60-1.20); POTASSIUM 3.5 mmol/L (3.5-5.1)
[2017-10-11] MEDS: CLOPIDOGREL BISULFATE 75 MG TAB PO SCH (07:46)
[2017-10-11] MEDS: POT PHOSPHATE MONOBASIC W/ SOD TAB PO SCH ×2 (07:46→11:59)
[2017-10-11] MEDS: ENOXAPARIN 40 MG/0.4 ML SYR SQ SCH (07:48)
[2017-10-11 08:00] VITALS: BP 157/84; PULSE 64; TEMP 36.4; O2SAT 96
[2017-10-11 08:09] LABS: PHOSPHORUS 2.5 mg/dl (2.5-4.9)
--- NOTE | 2017-10-11 12:44 | Nephrology Progress Note ---
Nephrology Progress Note Date of Service Oct 11, 2017. Chief Complaint Follow-up for hyponatremia. Yuko Gomez was seen and examined in her room this morning. She has been overall feeling well. Blood pressure stable. Serum sodium improved and stable around 134-135. Electrolyte acceptable. Review of Systems A complete review of systems was performed. Pertinent positives are noted above. All other systems are negative. Vital Signs Last 8 Hrs Date Time Temp Pulse Resp B/P (MAP) Pulse Ox O2 Delivery O2 Flow Rate FiO2 10/11/17 08:00 36.4 64 17 157/84 (108) 96 Room Air 10/11/17 08:00 Room Air Last Recorded Weight Weight (Kilograms): 71.700 Physical Exam GENERAL: Elderly female, AAA x 3, pleasant, healthy-appearing, not in any distress. NECK: Supple, no JVD. RESPIRATORY: Normal breathing efforts, no accessory muscle use, clear to auscultation bilaterally, no wheezes or rales. CARDIOVASCULAR: S1, S2 normal, rate rhythm regular. EXTREMITY: No lower extremity edema NEURO: speech fluent. 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 Laboratory Results Past 24 Hours 10/10/17 13:22 10/10/17 17:48 10/11/17 05:33 Test 10/11/17 05:33 Anion Gap 8.0 mmol/L (3-11) Est Creatinine Clear Calc Drug Dose 48.1 ml/min Estimated GFR () 82.5 Estimated GFR (Non- 71.2 BUN/Creatinine Ratio 15.9 (10-20) Calcium Level 7.7 mg/dl (8.5-10.1) Phosphorus Level 2.5 mg/dl (2.5-4.9) Magnesium Level 1.7 mg/dl (1.8-2.4) Chemistry Specimen Hemolysis Allergies Coded Allergies: NSAIDs (Verified Allergy, Unknown, UNKNOWN, 08/02/15) Rosuvastatin (Verified Allergy, Unknown, ITCHING, 08/02/15) Wheat (Verified Allergy, Unknown, puritis, 08/02/15) Tomato (Verified Adverse Reaction, Mild, HEADACHE, SWOLLEN TONGUE, ) Lisinopril (Verified Adverse Reaction, Unknown, SHORTNESS OF BREATH, ) angioedema Medications Current Inpatient Medications Medications (Trade) Dose Ordered Sig/Vianey Route Start Time Stop Time Status Last Admin Dose Admin Ondansetron HCl (Zofran Inj) 4 mg Q4H PRN IV 10/08/17 02:30 11/07/17 02:29 10/08/17 23:52 4 MG Amlodipine Besylate (Norvasc Tab) 5 mg QPM PO 10/08/17 21:00 11/07/17 20:59 10/10/17 20:58 5 MG Clopidogrel Bisulfate (plAVix TAB) 75 mg DAILY PO 10/08/17 09:00 11/07/17 08:59 10/11/17 07:46 75 MG Enoxaparin Sodium (Lovenox Inj) 40 mg QAM SQ 10/09/17 09:00 11/08/17 08:59 10/10/17 08:59 40 MG Potassium/ Phosphorus/Sodium (Phospha 250 Neutral 155-852-130 Mg) 1 tab QID PO 10/10/17 09:00 11/09/17 08:59 10/11/17 11:59 1 TAB Sodium Chloride (Sodium Chloride Tab) 1 gm BID PO 10/11/17 21:00 11/10/17 20:59 Magnesium Oxide (Mag-Ox Tab) 400 mg BID PO 10/11/17 21:00 11/10/17 20:59 Impression (1) Hyponatremia (2) Hypokalemia (3) History of uterine cancer (4) History of kidney stones Hypoosmolar hyponatremia. Patient has been on thiazide diuretic therapy for blood pressure and kidney stone management. Expect urine osmolality < 100. Elevated osmolality is c/w patient's volume contracted state. Patient appears euthyroid and has no evidence of CKD or adrenal insufficiency Recommendations -- start on sodium chloride tablet 1 tab twice a day -- Will need to avoid thiazide diuretics -- Agree w/ free water restriction at this time --if patient needs diuretics, loop diuretics would be a better choice. Okay to be discharged, please schedule for follow-up appointment with in 1-2 weeks, and outpatient lab done in 2-3 days
[2017-10-11] MEDS ORDERED: MGNO400 PO ×2 (12:57→13:16)
--- NOTE | 2017-10-11 13:01 | Discharge Instructions ---
Discharge Instructions Date of Service Oct 11, 2017. Admission Reason for Admission: Hyponatremia, Vomiting Discharge Discharge Diagnosis / Problem: Hyponatremia, nausea/vomiting Discharge Goals Goal(s): Decrease discomfort, Improve function Activity Recommendations Activity Limitations: resume your previous activity . Instructions / Follow-Up Instructions / Follow-Up FOLLOWUP WITH FAMILY DOCTOR ON September AT 10AM. FOLLOWUP WITH NEPHROLOGY IN 1-2 WEEKS. FOLLOWUP WITH SURGERY SOON POSSIBLE FOR COLOSTOMY ON AND OFF BLEEDING.( [address], [place] [address] ) LAB: BMP WITH MG LEVELS IN 3-4 DAYS AND FOLLOW RESULTS WITH FAMILY DOCTOR AND NEPHROLOGY. STOPPING DIURETIC MAXZIDE AND IF DIURETIC NEEDED LATER ON NEPHROLOGY RECOMMENDS LOOP DIURETIC( LASIX) STARTING ON SALT TABLET 1GM TWICE DAILY. NEEDS TO FOLLOWUP LABS ABOVE WITH FAMILY DOCTOR AND NEPHROLOGY Current Hospital Diet Patient's current hospital diet: AHA Diet (Heart Healthy) Discharge Diet Recommended Diet: AHA Diet (Heart Healthy) Fluid Restriction: 1800 ml (7 cups) Pending Studies Studies pending at discharge: no Medical Emergencies . Who to Call and When: Medical Emergencies: If at any time you feel your situation is an emergency, please call 911 immediately. . Non-Emergent Contact Non-Emergency issues call your: Primary Care Provider . . "Provider Documentation" section prepared by Jeronimo Tyson. .
[2017-10-11] MEDS ORDERED: NRV/5 PO (13:15)
[2017-10-11] MEDS ORDERED: SDMC1 PO (13:16)
[2017-10-11 13:49] VITALS: BP 157/84; PULSE 64; TEMP 36.4; O2SAT 96
--- NOTE | 2017-10-11 15:40 | Progress Note ---
Internal Med Progress Note Date of Service: Oct 11, 2017. Provider Documentation: SUBJECTIVE: resting comfortably nausea and vomiting resolved tolerating diet fine afebrile no sob wants to be discharged colostomy site bled but stopped. says its happening on and off for some time and will follow with surgery as out patient OBJECTIVE: Vital Signs-as noted below Exam: General-alert and oriented. Not in distress ENT-Normal hearing Neck-no neck masses Lungs-cta b/l no wheezing or crackles Heart-S 1 and s2 heard regular no murmurs Abdomen-soft bowel sounds present non tender no distension colostomy site fine Extremities-no edema no erythema Neuro-alert and awake moves extremities Lab data as noted below. ASSESSMENT & PLAN: 87 yo F with one day h/o vomiting presents with hyponatremia..On diuretic for kidney stones 1. Hypovolemic Hyposmolar Hyponatremia-Most likely secondary nausea and vomiting, diuretic use. Diuretic is currently held . received iv fluifs. Na improved to 133 today. fluids stopped and recheck of Sodium 135. D/W nephrology. Na 134 ttoday. started on soidum tablets by nephrology. fluid restriction(1800ml/day at discharge). f/u labs closely with pcp and nephrology 2. UTI- was on Rocephin which is stopped now as cx negative. 3. s/p abdominal surgery with bilateral ostomy sites. C-diff negative. 4. Hypophosphatemia-replacing. 5. HTN-cont amlodipine, holding atenolol and maxzide in setting of volume depletion. stopped Maxzide at discharge. f/u with pcp. nephrology recommends loop diuretic if needed 6. Kidney stones. continuing potassium citrate. f/u labs with pcp 6. PVD-cont Plavix discharged home Vital Signs: Date Time Temp Pulse Resp B/P (MAP) Pulse Ox O2 Delivery O2 Flow Rate FiO2 10/11/17 13:49 36.4 64 17 96 Room Air 10/11/17 08:00 36.4 64 17 157/84 (108) 96 Room Air 10/11/17 08:00 Room Air 10/11/17 00:00 Room Air 10/10/17 23:07 37.2 77 20 129/73 (91) 96 Room Air 10/10/17 16:10 36.5 68 16 137/72 (93) 96 Room Air 10/10/17 15:40 Room Air Lab Results: Results Past 24 Hours Test 10/10/17 17:48 10/11/17 05:33 10/11/17 13:40 Range/Units Sodium Level 135 134 136-145 mmol/L Potassium Level 3.5 3.5-5.1 mmol/L Chloride Level 101 98-107 mmol/L Carbon Dioxide Level 25 21-32 mmol/L Anion Gap 8.0 3-11 mmol/L Blood Urea Nitrogen 12 7-18 mg/dl Creatinine 0.75 0.60-1.20 mg/dl Est Creatinine Clear Calc Drug Dose 48.1 ml/min Estimated GFR () 82.5 Estimated GFR (Non- 71.2 BUN/Creatinine Ratio 15.9 10-20 Random Glucose 76 70-99 mg/dl Calcium Level 7.7 8.5-10.1 mg/dl Phosphorus Level 2.5 2.5-4.9 mg/dl Magnesium Level 1.7 1.8-2.4 mg/dl Chemistry Specimen Hemolysis Urine Osmolality 328 500-800 mOms/kg
--- NOTE | 2017-10-11 15:58 | Discharge Summary ---
Discharge Summary Date of Service Oct 11, 2017. Discharge Summary Admission Date: Oct 08, 2017 at 02:19 Discharge Date: Oct 11, 2017 Discharge Disposition: Home Principal Diagnosis: HYPONATREMIA N/V Secondary Diagnoses/Problems: (1) Bowel obstruction (2) Dehydration (3) Electrolyte abnormality (4) Epistaxis (5) History of uterine cancer (6) Hypertension (7) Hyponatremia (8) Mild headache (9) Parastomal hernia (10) Paresthesia (11) Renal insufficiency (12) Urostomy (13) Vomiting Consultations: Nephro-Donnelan Pending Studies/Follow-Up: LAB: BMP IN 3-4 DAYS Medication Reconciliation New Medications: Sodium Chloride (Sodium Chloride) 1 Gm Tab 1 GM PO BID for 30 Days, #60 TABS 2 Refills Magnesium Oxide (Magnesium-Oxide) 400 Mg Tab 400 MG PO BID for 7 Days, #14 TAB Continued Medications: Amlodipine Besylate (Amlodipine Besylate) 5 Mg Tab 5 MG PO BID, #30 Atenolol (Atenolol) 50 Mg Tab 50 MG PO BID Clopidogrel Bisulfate (Clopidogrel) 75 Mg Tab 75 MG PO DAILY Coenzyme Q10 (Ubidecarenone) (Co Q 10) 100 Mg Cap 100 MG PO DAILY Fish Oil ([place]-3) 1 Ea Cap 1 CAP PO BID Potassium Citrate (Potassium Citrate) 10 Meq Tab 10 MEQ PO TID Psyllium (Metamucil Powder) Powd 1-2 TSP PO DAILY MIX 1-2 TEASPOONS IN WATER DAILY IN AM Red Yeast Rice Extract (Red Yeast Rice) 600 Mg Cap 600 MG PO BID Discontinued Medications: Triamterene/Hctz (Maxzide 75MG/50MG) Tab 0.5 TAB PO DAILY, TAB Admission Information HPI (per Admitting provider): This is an 87 year old Female with history of ostomy bags x 2 who has been having vomiting x 1 day. Patient denies acute abdominal pain associated with the vomiting. She cannot determine whether there has been more ostomy outputs recently. Patient's labs grossly abnormal for: -hyponatremia admission serum sodium 112 -hypomagnesemia admission serum magnesium 1.1 -hypokalemia admission serum potassium 2.5 Patient denies fever or dysuria or lightheadedness or other symptoms besides the vomiting Physical Exam (per Admitting): General Appearance: no apparent distress Head: normocephalic, atraumatic Eyes: normal inspection, EOMI, sclerae normal ENT: normal ENT inspection, hearing grossly normal, pharynx normal Neck: supple, no JVD, trachea midline Respiratory/Chest: chest non-tender, lungs clear, normal breath sounds, no respiratory distress, no accessory muscle use Cardiovascular: regular rate, rhythm, no edema, no JVD, normal peripheral pulses, + systolic murmur Abdomen/GI: normal bowel sounds, non tender, soft, + pertinent finding ( presence of ostomy bags on right and left abdomen) Back: normal inspection, no CVA tenderness, no muscle spasm Extremities/Musculoskelatal: normal inspection, no calf tenderness, no pedal edema, non-tender Neurologic/Psych: no motor/sensory deficits, alert, normal mood/affect Skin: normal color, warm/dry, no rash Hospital Course 87 yo F with one day h/o vomiting presents with hyponatremia..On diuretic for kidney stones 1. Hypovolemic Hyposmolar Hyponatremia-Most likely secondary nausea and vomiting, diuretic use. Diuretic is currently held . received iv fluifs. Na improved to 133 today. fluids stopped and recheck of Sodium 135. D/W nephrology. Na 134 ttoday. started on soidum tablets by nephrology. fluid restriction(1800ml/day at discharge). f/u labs closely with pcp and nephrology 2. UTI- was on Rocephin which is stopped now as cx negative. 3. s/p abdominal surgery with bilateral ostomy sites. C-diff negative. 4. Hypophosphatemia-replacing. 5. HTN-cont amlodipine, holding atenolol and maxzide in setting of volume depletion. stopped Maxzide at discharge. f/u with pcp. nephrology recommends loop diuretic if needed 6. Kidney stones. continuing potassium citrate. f/u labs with pcp 6. PVD-cont Plavix discharged home Total time spent on discharge = 35MINUTES This includes examination of the patient, discharge planning, medication reconciliation, and communication with other providers. Discharge Instructions Discharge Instructions Date of Service Oct 11, 2017. Admission Reason for Admission: Hyponatremia, Vomiting Discharge Discharge Diagnosis / Problem: Hyponatremia, nausea/vomiting Discharge Goals Goal(s): Decrease discomfort, Improve function Activity Recommendations Activity Limitations: resume your previous activity . Instructions / Follow-Up Instructions / Follow-Up FOLLOWUP WITH FAMILY DOCTOR ON September AT 10AM. FOLLOWUP WITH NEPHROLOGY IN 1-2 WEEKS. FOLLOWUP WITH SURGERY SOON POSSIBLE FOR COLOSTOMY ON AND OFF BLEEDING.( [address], [place] [address] ) LAB: BMP WITH MG LEVELS IN 3-4 DAYS AND FOLLOW RESULTS WITH FAMILY DOCTOR AND NEPHROLOGY. STOPPING DIURETIC MAXZIDE AND IF DIURETIC NEEDED LATER ON NEPHROLOGY RECOMMENDS LOOP DIURETIC( LASIX) STARTING ON SALT TABLET 1GM TWICE DAILY. NEEDS TO FOLLOWUP LABS ABOVE WITH FAMILY DOCTOR AND NEPHROLOGY Current Hospital Diet Patient's current hospital diet: AHA Diet (Heart Healthy) Discharge Diet Recommended Diet: AHA Diet (Heart Healthy) Fluid Restriction: 1800 ml (7 cups) Pending Studies Studies pending at discharge: no Medical Emergencies . Who to Call and When: Medical Emergencies: If at any time you feel your situation is an emergency, please call 911 immediately. . Non-Emergent Contact Non-Emergency issues call your: Primary Care Provider . .
[2017-10-11] MEDS ORDERED: MAGNESIUM OXIDE 400 MG TAB PO SCH (21:00)
[2017-10-11] MEDS ORDERED: SODIUM CHLORIDE 1 GM TAB PO SCH (21:00)
== END 2017-10-11 15:05 | disposition home or self-care (01) | DRG 641 ==
LOC: C.EDB 23:57 → C.2T 10-08 02:19 → ENRESERV 10-08 02:47 → C.MS2W 10-10 09:57 → ENRESERV 10-10 10:04
PROVIDERS: ADMIT Hospitalist; ATTEND Internal Medicine
DX: E87.1 Hypo-osmolality and hyponatremia (principal); N39.0 Urinary tract infection, site not specified; E86.1 Hypovolemia; E87.6 Hypokalemia; E83.42 Hypomagnesemia; E83.39 Other disorders of phosphorus metabolism; I10 Essential (primary) hypertension; R11.2 Nausea with vomiting, unspecified; I73.9 Peripheral vascular disease, unspecified; Z79.899 Other long term (current) drug therapy; Z79.02 Long term (current) use of antithrombotics/antiplatelets; Z88.8 Allergy status to other drugs, medicaments and biological substances; Z88.6 Allergy status to analgesic agent; Z93.3 Colostomy status; Z85.41 Personal history of malignant neoplasm of cervix uteri; Z92.3 Personal history of irradiation

== ENCOUNTER → 2017-11-13 | Outpatient (CLI) | payer OTHER ==
[~2017-11-13] MED LIST changes: +MGNO400 PO; -POTA1080 PO; +SDMC1 PO; -TRIA75TA53 PO; +URC10 PO
[2017-11-13 13:38] LABS: HEMATOCRIT 41.6 % (37-47); HEMOGLOBIN 14.2 g/dL (12.0-16.0); MEAN CELL VOLUME 93.7 fL (80-100); MEAN CORPUSCULAR HGB CONC 34.1 g/dl (32-36); MEAN PLATELET VOLUME 9.3 fL (7.4-10.4); PLATELET COUNT 173 K/uL (130-400); RED CELL DISTRIBUTION WIDTH CV 13.5 % (11.5-14.5); RED CELL DISTRIBUTION WIDTH SD 46.4 fL (36.4-46.3); WHITE BLOOD COUNT 6.99 K/uL (4.8-10.8)
[2017-11-13 14:14] LABS: ALBUMIN 3.4 gm/dl (3.4-5.0); ALT/SGPT 31 U/L (12-78); AST/SGOT 24 U/L (15-37); BLOOD UREA NITROGEN 21 mg/dl (7-18); CARBON DIOXIDE 32 mmol/L (21-32); CREATININE 1.13 mg/dl (0.60-1.20); GLUCOSE 85 mg/dl (70-99); PHOSPHORUS 3.3 mg/dl (2.5-4.9); POTASSIUM 3.8 mmol/L (3.5-5.1); SODIUM 137 mmol/L (136-145); TOTAL PROTEIN 8.6 gm/dl (6.4-8.2); URIC ACID 6.1 mg/dl (2.6-7.2)
[2017-11-13 14:16] LABS: ALKALINE PHOSPHATASE 71 U/L (45-117)
== END | disposition home or self-care (01) ==
LOC: C.LAB 12:02
PROVIDERS: ATTEND Internal Medicine Nephrology
DX: I12.9 Hypertensive chronic kidney disease with stage 1 through stage 4 chronic kidney disease, or unspecified chronic kidney disease (principal); N18.9 Chronic kidney disease, unspecified; N20.0 Calculus of kidney; R80.9 Proteinuria, unspecified; E55.9 Vitamin D deficiency, unspecified